=== PATIENT | female | born 1955 | race African-American/Black ===

== ENCOUNTER 2019-07-05 00:43 | Emergency (ER) | payer OTHER, SELFPAY ==
[2019-07-05] VITALS (7 sets, daily range): BP systolic 114–145; BP diastolic 81–99; PULSE 98–123; RESP 17–18; TEMP 37.6–38.6; O2SAT 97–100
--- NOTE | 2019-07-05 00:53 | ED.NAVMDI ---
HPI - Nausea/Vomiting/Diarrhea General Chief complaint: Nausea/Vomiting/Diarrhea Stated complaint: nauseated Time Seen by Provider: 07/05/19 00:50 Source: patient Mode of arrival: ambulatory Limitations: no limitations History of Present Illness HPI Narrative: A 63 y/o female pt has presented to the ED with c/o constant nausea that began 1 day ago. Pt currently has a fever at the ED. Pt notes a decreased appetite. Pt denies ABD pain, flatulence, diarrhea, vomiting, aches,sweating, chills, rhinorrhea, sore throat, productive cough, dysuria, hematuria, SOB, CP, or chest pressure. Pt denies any relieving factors or taking any medicine. Pt states that she took a hot bath before coming to the ED, but did not help. She denies any sick contacts. Pt reports a h/o HTN and allergies. Pt denies any h/o surgeries. 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 Pt denies a h/o smoking, drinking, or drugs. She notes that there is no way she could have been exposed to COVID-19. elicited complaint: nausea (constant) Onset (ago): day(s) (1) Associated abdominal pain: No Location of pain: none Relieving factors: none Associated symptoms: other (fever, decreased appetite) Related Data Allergies Allergy/AdvReac Type Severity Reaction Status Date / Time No Known Allergies Allergy Verified 07/05/19 00:57 Review of Systems Review of Systems: All systems reviewed & are unremarkable except as noted in HPI and below Constitutional: Constitutional: Denies body ache(s), Denies chills, Reports fever(s) and Reports poor appetite ENT: Denies sore throat and Denies other (Rhinorrhea) Cardiovascular: Cardiovascular: Denies chest pain and Denies other (Chest Pressure) Respiratory: Respiratory: Denies cough and Denies dyspnea Gastrointestinal: Gastrointestinal: Denies abdominal pain, Denies excessive flatus, Denies diarrhea, Reports nausea (Constant) and Denies vomiting Genitourinary: Genitourinary: Denies hematuria and Denies dysuria Endocrine: Endocrine: Denies excessive sweating PMFSH Past Medical History Medical History (Updated 07/05/19 @ 02:34 by Jose Eduardo Seo MD) HTN (hypertension) Post-menopausal Seasonal allergies UTI (urinary tract infection) Surgical History Surgical History No pertinent past surgical history Social History Social History (Updated 07/05/19 @ 01:27 by Walter Ramos) Smoking status: Never smoker Alcohol intake: never Substance use: never Occupation/Education: occupation 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 HEAD: Normocephalic, atraumatic. ENT: Mucous membranes moist. CHEST: Clear to auscultation. No respiratory distress. HEART: Tachycardic and regular. Normal peripheral pulses. ABDOMEN: Soft, nontender, nondistended. EXTREMITIES: Normal range of motion. No edema. SKIN: Warm, dry, no rash. NEURO: Alert and oriented x3. Course Course Emergency Course: Tolerating oral fluids without issue. Urinalysis with 4+ bacteria. Will treat with Macrobid. Otherwise nonspecific febrile illness. Recommend patient stay at home until she is 7 days symptom-free. No hypoxia/dyspnea/cold symptoms. Vital Signs Vital signs: Vital Signs Temperature 101.4 F H 07/05/19 00:47 Pulse Rate 119 H 07/05/19 00:47 Respiratory Rate 18 07/05/19 00:47 Blood Pressure 143/88 H 07/05/19 00:47 Pulse Oximetry 100 07/05/19 00:47 Temperature 100.7 F H 07/05/19 02:00 Pulse Rate 102 H 07/05/19 02:23 Respiratory Rate 17 07/05/19 02:23 Blood Pressure 122/84 07/05/19 02:23 Pulse Oximetry 98 07/05/19 02:23 MDM - Nausea/Vomiting/Diarrhea Lab Data Result diagrams: 07/05/19 01:18 07/05/19 01:18 Labs: Lab Results 04
[2019-07-05] MEDS: ONDANSETRON INJ 4 MG/2 ML VIAL IV PUSH (01:20)
[2019-07-05] MEDS: SODIUM CHLORIDE 0.9% IV 1,000 ML 999 ML IV CONT (01:20)
[2019-07-05 01:24] LABS: Basophils Percent Auto 0.2 % (0.2-1.2); Hematocrit 36.4 % (37.0-47.0); Hemoglobin 12.3 g/dL (12.0-15.0); Immature Granulocyte Absolute 0.02 K/mm3 (0.00-0.031); Immature Granulocyte Percent A 0.4 % (0-0.5); Lymphocytes Absolute Auto 0.89 K/mm3 (0.9-3.2); Lymphocytes Percent Auto 19.4 % (18.3-44.2); Mean Corpuscular HGB Conc 33.8 g/dl (32-36); Mean Corpuscular Hemoglobin 30.4 pg (26-34); Mean Corpuscular Volume 90.1 fl (80-100); Mean Platelet Volume 11.5 fl (7.4-10.4); Monocytes Absolute Auto 0.5 K/mm3 (0.1-0.6); Monocytes Percent Auto 9.8 % (2.6-8.5); Neutrophils Absolute Auto 3.2 K/mm3 (1.3-6.7); Neutrophils Percent Auto 70.2 % (45.5-73.1); Platelet Count Result 158 k/mm3 (150-375); Red Blood Count 4.04 M/mm3 (4.2-5.4); Red Cell Distribution Width 12.7 % (11.5-14.5); White Blood Count 4.6 K/mm3 (4.5-10.0)
[2019-07-05 01:36] LABS: Alanine Aminotransferase 17 U/L (4-35); Albumin Level 4.6 g/dL (3.5-5.1); Alkaline Phosphatase 84 U/L (38-126); Aspartate Amino Transferase 31 U/L (14-36); Bilirubin,Total 0.6 mg/dL (0.2-1.3); Blood Urea Nitrogen 18 mg/dL (7-17); Calcium 9.3 mg/dL (8.4-10.2); Carbon Dioxide 26 mmol/L (22-30); Chloride 102 mmol/L (98-107); Estimated CRCL calculation 55 ml/min; Estimated Glomerular Filt Rate > 60; Glucose 109 mg/dL (65-105); Lipase 195 U/L (23-300); Potassium 3.5 mmol/L (3.4-5.0); Sodium 134 mmol/L (137-145)
[2019-07-05 01:53] LABS: Add Urine Microscopic? YES; Appearance Urine Clear (Clear); Bacteria Urine 4+ /hpf; Bilirubin Urine Negative (Negative); Blood Urine Negative (Negative); Color Urine Yellow (Yellow); Glucose Urine UA Negative (Negative); Ketones Urine 1+ mg/dL (Negative); Leukocyte Esterase Ur Negative LEU/UL (Negative); Mucus Urine Rare /lpf; Nitrate Urine Negative (Negative); Protein Urine 2+ mg/dL (Negative); RBC Urine 0-2 /hpf (0-2); Specific Grav Ur 1.021 (1.001-1.035); Squamous Epithelial Cell Urine Occasional /hpf (Few); Urobilinogen Urine Negative mg/dL (<2.0); WBC Urine 0-3 /hpf
--- NOTE | 2019-07-05 02:28 | PC.NURSE ---
pt reports no nausea/vomiting after po challenge. md notified.
== END 2019-07-05 03:09 | disposition home or self-care (01) ==
PROVIDERS: Emergency Provider Emergency Medicine
DX: N39.0 Urinary tract infection, site not specified (principal); R11.0 Nausea; I10 Essential (primary) hypertension
CPT/HCPCS: 36415; 80053; 81001; 83690; 85025; 87804; 96361; 96365; 96375; 99284; J0131; J2405; J7030

== ENCOUNTER 2019-07-10 20:46 | Inpatient (IN) | payer OTHER, SELFPAY ==
--- NOTE | ~2019-07-10 | XR_ITS ---
EXAMINATION: XR chest 1V portable DATE: 07/13/2019 10:59 INDICATION: COVID-19 pneumonia. TECHNIQUE: A single frontal view of the chest was obtained. COMPARISON: Chest single view 07/10/2019 FINDINGS: There are mild airspace opacities in the mid and lower lung zones. No pleural effusion or p neumothorax. The heart size is normal. IMPRESSION: 1. Stable mild airspace opacities in the mid and lower lung zones, consistent with pneumonia. Reviewed, dictated and finalized at location A. IMPRESSION: 1. Stable mild airspace opacities in the mid and lower lung zones, consistent w ith pneumonia.
--- NOTE | ~2019-07-10 | CT_ITS ---
EXAMINATION: CT abdomen pelvis w con DATE: 07/10/2019 21:39 INDICATION: Generalized abdominal pain. Nausea. TECHNIQUE: Computed tomography (CT) of the abdomen and pelvis was performed with 100 mL Omnipaque 350 intravenous contrast. Automated exposure control and iterative reconstruction technique were employe d. The dose-length product was 166.80 mGy-cm. COMPARISON: None. FINDINGS: The visualized portions of the lung bases demonstrate patchy groundglass opacities. No pleu ral effusion. The heart size is normal. No pericardial effusion. The liver, gallbladder, spleen, panc reas, adrenal glands, and kidneys are normal. The endometrial complex is thickened at 2.3 cm. There a re no dilated loops of bowel. The appendix is normal. There are no pathologically enlarged lymph node s. There is no free intraperitoneal fluid. There is a benign bone island in L3 vertebral body. IMPRESSION: 1. Groundglass opacities in the lungs bilaterally suspicious for atypical pneumonia. 2. Thickened endometrial complex suspicious for malignancy. Biopsy is recommended. Reviewed, dictated and finalized at location A. IMPRESSION: 1. Groundglass opacities in the lungs bilaterally suspicious for atypical pneum onia. 2. Thickened endometrial complex suspicious for malignancy. Biopsy is recommend ed.
--- NOTE | ~2019-07-10 | XR_ITS ---
EXAMINATION: XR chest 1V DATE: 07/10/2019 22:22 INDICATION: Fever and cough. TECHNIQUE: A single frontal view of the chest was obtained. COMPARISON: CT abdomen and pelvis 07/10/2019 FINDINGS: There is mild scarring at the lung apices. There are mild airspace opacities in the lower l meena zones. No pleural effusion or pneumothorax. The heart size is normal. IMPRESSION: 1. Mild airspace opacities in the lower lung zone suspicious for atypical pneumonia. Reviewed, dictated and finalized at location A. IMPRESSION: 1. Mild airspace opacities in the lower lung zone suspicious for atypical pneum onia.
[2019-07-10 20:53] VITALS: BP 131/86; PULSE 128; RESP 20; TEMP 37.3; O2SAT 97
--- NOTE | 2019-07-10 20:54 | ED.ABDPAIN ---
HPI - Abdominal Pain General Chief Complaint: Abdominal Pain Stated Complaint: nausea Time Seen by Provider: 07/10/19 20:53 Source: patient Mode of arrival: ambulatory Limitations: no limitations History of Present Illness HPI narrative: 63 years old -[place] female presents with fever and nausea started 1 hour prior to arrival to the emergency room. Patient reports slight suprapubic discomfort. Patient reported having urinary tract infection few days ago. Currently on antibiotic. Patient did not take any antipyretic medication prior to arrival. Patient reported that her temperature was 101 at home. Patient denies any respiratory symptoms diarrhea or urinary symptoms. 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 EYES: Denies visual changes, redness, or discharge. ENT: Denies rhinorrhea, congestion, sore throat, or otalgia. CARDIOVASCULAR: Denies chest pain, palpitations, or edema. RESPIRATORY: Denies cough or dyspnea. GASTROINTESTINAL: Abdominal pain with nausea GENITOURINARY: Denies dysuria or hematuria. SKIN: Denies rash or itching. MUSCULOSKELETAL: Denies back pain, joint pain, or myalgia. NEUROLOGIC: Denies headache, numbness, or weakness. PSYCHIATRIC: Denies anxiety or depression. 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 Musculoskeletal: Normal range of motion, nontender back Neurologic: Alert and oriented ?3, [employer] is normal as tested, no gross motor deficit Course Course Emergency Course: Improving Reevaluation(s) Reevaluation #1: Patient feeling much better compared on arrival, Patient will be admitted for possible COVID 19, urinary tract infection without improvement on oral antibiotics, dehydration Date: 07/10/19 Time: 22:57 Consultations Consultation #1: MIGUEL Date: 07/10/19 Time: 22:59 Vital Signs Vital signs: Vital Signs Temperature 37.3 C 07/10/19 20:53 Pulse Rate 128 H 07/10/19 20:53 Respiratory Rate 20 07/10/19 20:53 Blood Pressure 131/86 07/10/19 20:53 Pulse Oximetry 97 07/10/19 20:53 Temperature 37.2 C 07/10/19 22:3
[2019-07-10 21:15] LABS: Basophils Percent Auto 0.1 % (0.2-1.2); Hematocrit 38.7 % (37.0-47.0); Immature Granulocyte Absolute 0.03 K/mm3 (0.00-0.031); Immature Granulocyte Percent A 0.4 % (0-0.5); Lymphocytes Absolute Auto 1.27 K/mm3 (0.9-3.2); Lymphocytes Percent Auto 17.3 % (18.3-44.2); Mean Corpuscular HGB Conc 33.6 g/dl (32-36); Mean Corpuscular Hemoglobin 30.4 pg (26-34); Mean Corpuscular Volume 90.4 fl (80-100); Mean Platelet Volume 11.7 fl (7.4-10.4); Monocytes Absolute Auto 0.4 K/mm3 (0.1-0.6); Monocytes Percent Auto 5.3 % (2.6-8.5); Neutrophils Absolute Auto 5.7 K/mm3 (1.3-6.7); Neutrophils Percent Auto 76.9 % (45.5-73.1); Platelet Count Result 156 k/mm3 (150-375); Red Blood Count 4.28 M/mm3 (4.2-5.4); Red Cell Distribution Width 12.8 % (11.5-14.5); White Blood Count 7.4 K/mm3 (4.5-10.0)
[2019-07-10 21:22] LABS: Alanine Aminotransferase 43 U/L (4-35); Albumin Level 4.5 g/dL (3.5-5.1); Alkaline Phosphatase 75 U/L (38-126); Aspartate Amino Transferase 63 U/L (14-36); Blood Urea Nitrogen 33 mg/dL (7-17); Calcium 9.6 mg/dL (8.4-10.2); Carbon Dioxide 26 mmol/L (22-30); Chloride 100 mmol/L (98-107); Estimated CRCL calculation 36 ml/min; Estimated Glomerular Filt Rate > 60; Glucose 113 mg/dL (65-105); Lipase 770 U/L (23-300); Potassium 3.9 mmol/L (3.4-5.0); Sodium 136 mmol/L (137-145)
[2019-07-10 21:27] LABS: Add Urine Microscopic? YES; Amorphous Sediment Urine Few; Appearance Urine Cloudy (Clear); Bacteria Urine Trace /hpf; Bilirubin Urine Negative (Negative); Blood Urine Negative (Negative); Color Urine Yellow (Yellow); Glucose Urine UA Negative (Negative); Ketones Urine Trace mg/dL (Negative); Leukocyte Esterase Ur 3+ LEU/UL (Negative); Mucus Urine Few /lpf; Nitrate Urine Negative (Negative); Protein Urine 2+ mg/dL (Negative); RBC Urine 0-2 /hpf (0-2); Specific Grav Ur 1.023 (1.001-1.035); Squamous Epithelial Cell Urine Many /hpf (Few); WBC Urine 21-30 /hpf
[2019-07-10] MEDS: SODIUM CHLORIDE 0.9% IV 1,000 ML 999 ML IV CONT (21:35)
[2019-07-10 22:31] VITALS: BP 132/88; PULSE 120; RESP 20; TEMP 37.2; O2SAT 97
[2019-07-10 22:54] LABS: CRP 8.4 mg/dL (<1.0); Lactate Dehydrogenase 798 U/L (313-618)
[2019-07-10 22:58] LABS: Fibrinogen 378 mg/dl (215-510)
[2019-07-10 23:32] VITALS: BP 133/70; PULSE 100; RESP 20; TEMP 37.1; O2SAT 98
[2019-07-10 23:40] VITALS: BP 137/70; PULSE 88; RESP 20; TEMP 39.3; O2SAT 93; BMI 21.4
[2019-07-10 23:42] LABS: Erythrocyte Sedimentation Rate 73 mm/hr (0-20)
[2019-07-11] VITALS (11 sets, daily range): BP systolic 100–114; BP diastolic 66–72; PULSE 94–112; RESP 16–18; TEMP 36.6–39.2; O2SAT 97–100
--- NOTE | 2019-07-11 00:10 | PC.NURSE ---
Addendum entered by Rakel Rand RN 07/12/19 09:56: Admission completed by Tamara Espinosa RN. Original Note: This patient, Chely Daniels, was admitted to [facility] Surg Room 328-01 on 07/10 at 0010. Patient/family oriented to hospital policies and general routines including ID bracelet, bed and alarms, visiting hours, pain management, procedures, bathroom and other care routines, personal items, smoking policy, room service/diet, and visiting hours. Valuables list has been completed. Information on how to activate the Rapid Response Team has been discussed. Patient/Family are encouraged to report perceived risks to care and to ask questions if they do not understand what they are told or what they should do.
--- NOTE | 2019-07-11 00:32 | PM.IMHP ---
H&P: HPI History of Present Illness Chief complaint: UTI, Dehydration, Uterine Mass, Covid-19 [place]. 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 The patient was just seen in our ER last Thursday when she was diagnosed with a UTI and sent home with macrobid. She denies any urinary symptoms tonight and is currently only complaining of a diffuse headache. She denies any vomiting, abdominal pain, dysuria, hematuria, chest pain, shortness of breath, palpitations, diarrhea or LE swelling. She does report having a sporadic nonproductive cough over the past few days. She was evaluated in the ER tonight and found to have an abnormal urinalysis. Apparently she did not have a urine culture obtained last thursday. The pateint's WBC is normal. We have been asked to admit the patient to the hospital for IV antibiotic therapy for a presumed worsened UTI? ER provider has tested the patient for possible novel Covid-19 viral infection given that her CXR demonstrated groundglass opacities in the bases. She has no other complaints at this time. 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[place], 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 Gender identity (if verbalized by the patient): Female Spiritual care concerns: No Agree to blood products: Yes Comments Patient denies any previous surgeries Meds Home Medications and Allergies Home Medications Medication Instructions Recorded Confirmed Type nitrofurantoin monohyd/m-cryst 100 mg PO Q12H 5 Days #10 cap 07/05/19 Rx [Macrobid] promethazine 25 mg PO Q6H PRN #14 tablet 07/05/19 Rx Allergies Allergy/AdvReac Type Severity Reaction Status Date / Time No Known Allergies Allergy Verified 07/10/19 20:56 Vital Signs Vital Signs - 24 hr 07/10/19 20:53 07/10/19 22:31 07/10/19 23:32 Temperature 37.3 C 37.2 C 37.1 C Pulse Rate 128 H 120 H 100 Respiratory Rate 20 20 20 Blood Pressure 131/86 132/88 133/70 Pulse Oximetry 97 97 98 07/10/19 23:40 Temperature 39.3 C H Pulse Rate 88 Respiratory Rate 20 Blood Pressure 137/70 Pulse Oximetry 93 Exam Const: General: cooperative, no acute distress, alert, awake, ill appearing and other (febrile to touch++ ) Nutritional Appearance: well nourished Orientation/consciousness: patient oriented x3 HENMT: Head: normal to inspection General nose exam: Normal external nose present Face and sinus: normal facial exam Mouth: Yes Normal oral and palatal mucosa present and Yes oropharynx normal Eyes: Pupils: Equal, round and reactive pupils present EOM: EOMs intact bilaterally Neck: Neck: supple and no JVD Thyroid: thyroid normal Lymphatic: lymphadenopathy not noted Resp: Effort & Inspection: normal respiratory effort Auscultation: clear to auscultation bilaterally Cardio: Rate: regular rate Rhythm: regular rhythm Heart sounds: no murmurs GI: Inspection: normal to inspection Auscultation: normal bowel sounds Skin: General skin exam: normal color and no rashes or lesions noted Neuro: General: patient oriented x3 Cranial nerves: Yes CN's II-XI
[2019-07-11] MEDS: ACETAMINOPHEN 325 MG TABLET 650 MG PO ×3 (01:03→21:37)
[2019-07-11] MEDS: SODIUM CHLORIDE 0.9% IV 1,000 ML 125 ML IV CONT (02:36)
[2019-07-11 06:13] LABS: Basophils Percent Auto 0.2 % (0.2-1.2); Hematocrit 35.3 % (37.0-47.0); Hemoglobin 11.8 g/dL (12.0-15.0); Immature Granulocyte Absolute 0.04 K/mm3 (0.00-0.031); Immature Granulocyte Percent A 0.7 % (0-0.5); Lymphocytes Absolute Auto 1.03 K/mm3 (0.9-3.2); Lymphocytes Percent Auto 17.7 % (18.3-44.2); Mean Corpuscular HGB Conc 33.4 g/dl (32-36); Mean Corpuscular Hemoglobin 30.3 pg (26-34); Mean Corpuscular Volume 90.7 fl (80-100); Mean Platelet Volume 11.8 fl (7.4-10.4); Monocytes Absolute Auto 0.3 K/mm3 (0.1-0.6); Monocytes Percent Auto 4.8 % (2.6-8.5); Neutrophils Absolute Auto 4.5 K/mm3 (1.3-6.7); Neutrophils Percent Auto 76.6 % (45.5-73.1); Platelet Count Result 143 k/mm3 (150-375); Red Blood Count 3.89 M/mm3 (4.2-5.4); Red Cell Distribution Width 12.9 % (11.5-14.5); White Blood Count 5.8 K/mm3 (4.5-10.0)
[2019-07-11 06:19] LABS: Blood Urea Nitrogen 18 mg/dL (7-17); Calcium 9.3 mg/dL (8.4-10.2); Carbon Dioxide 27 mmol/L (22-30); Chloride 104 mmol/L (98-107); Estimated CRCL calculation 49 ml/min; Estimated Glomerular Filt Rate > 60; Glucose 104 mg/dL (65-105); Potassium 3.6 mmol/L (3.4-5.0); Sodium 136 mmol/L (137-145)
[2019-07-11] MEDS: DOXYCYCLINE HYCLATE 100 MG TABLET PO ×2 (09:16→21:37)
--- NOTE | 2019-07-11 14:35 | PM.IMPN ---
Progress Note: A&P Assessment and Plan (1) Abnormal urinalysis: Code(s): R82.90 - Unspecified abnormal findings in urine Status: Acute Assessment and Plan: The pt reports urinary frequency. UA suggests UTI. Continue IV ceftriaxone empirically Urine culture is pending (2) Suspected COVID-19 virus infection: Code(s): R68.89 - Other general symptoms and signs Status: Acute Assessment and Plan: CXR revealed mild airspace opacities in the lower lung zone suspicious for atypical pneumonia. CT abd/pelvis revealed groundglass opacities bilaterally suspicious for atypical PNA. She continues to have fever elevated to 102.7 overnight. She denies dyspnea, cough, pleuritic pain, chest pain. Ferritin was elevated at 421, AST 63, ALT 43, LDH 798, CRP 8.4. She is being tested for COVID-19. Initiate droplet isolation Continue bronchodilators via MDI Oxygen PRN Await COVID-19 testing Continue empiric abx IV ceftriaxone and will begin doxycycline for empiric PNA treatment [place] acute phase reactants (3) Thickened endometrium: Code(s): R93.89 - Abnormal findings on diagnostic imaging of other specified body structures Status: Acute Assessment and Plan: CT abd/pelvis revealed thickened endometrial complex of 2.3cm suspicious for malignancy. She denies abnormal uterine bleeding. Pt will need endometrial biopsy outpatient. I have referred her to TRANSFUS[facility] NURSE Dr. Bernard for further workup/biopsy. An appointment was scheduled for 08/04/19 at 10:15 AM. (4) DVT prophylaxis: Code(s): Z29.9 - Encounter for prophylactic measures, unspecified Status: Acute Assessment and Plan: Continue SCDs Subjective Date/time seen: 07/11/19 14:35 Interval history: Mrs. Daniels is a 63 y.o. female who is seen in follow-up for UTI and possible COVID-19 infection. She reports that her nausea has resolved. She denies vomiting and abdominal pain. She endorses urinary frequency but this is improving. She denies chest pain, dyspnea, and cough. She denies chills. She states that her appetite is better today and she ate her lunch without difficulty. She denies headaches, dizziness, and lightheadedness. She denies any hx of uterine bleeding. Review of Systems Review of Systems: All systems reviewed & are unremarkable except as noted in HPI and below Exam Narrative: Exam Narrative: General: Well-developed and well-nourished 63 y.o. female lying in bed in the semi-harris's position in bed in no acute distress. HEENT: Normocephalic and atraumatic. Conjunctivae and lids normal. PERRL. EOMI. Mucous membranes moist. Posterior pharynx WNL. Neck: Supple. No lymphadenopathy or masses. Cardiac: Regular rate and rhythm. S1 and S2 normal. Lungs: Normal respiratory effort. No accessory muscle use. Lungs are clear to auscultation. Abdomen: Appearance grossly normal. Bowel sounds present in all four quadrants. Abdomen is soft, non-distended, and non-tender. No CVA tenderness. Musculoskeletal: No joint erythema, swelling, or tenderness. ROM within normal limits. Extremities: No lower extremity edema. Palpable DP and PT bilaterally. Neurological: Alert and oriented x3. No focal neurological deficits noted. Speech is clear. Skin: Warm and dry. No lesions or eruptions. Psychiatric: Judgment and insight intact. Mood and affect normal. Objective Data Vital Signs Vital Signs: Vital Signs - 24 hr 07/10/19 20:53 07/10/19 22:31 07/10/19 23:32 Temperature 99.1 F 99.0 F 98.8 F Pulse Rate 128 H 120 H 100 Respiratory Rate 20 20 20 Blood Pressure 131/86 132/88 133/70 Pulse Oximetry 97 97 98 07/10/19 23:40 07/11/19 01:03 07/11/19 04:00 Temperature 102.7 F H 102.5 F H 98.4 F Pulse Rate 88 98 Respiratory Rate 20 18 Blood Pressure 137/70 105/66 Pulse Oximetry 93 97 07/11/19 10:00 07/11/19 10:40 07/11/19 11:40 Temperature 100.8 F H 100.1 F H 98 F Pulse Rate 98
[2019-07-12 02:00] VITALS: BP 98/66; PULSE 100; RESP 18; TEMP 37.3; O2SAT 97
[2019-07-12 05:39] LABS: Basophils Percent Auto 0.2 % (0.2-1.2); Hematocrit 33.9 % (37.0-47.0); Hemoglobin 11.6 g/dL (12.0-15.0); Immature Granulocyte Absolute 0.02 K/mm3 (0.00-0.031); Immature Granulocyte Percent A 0.4 % (0-0.5); Lymphocytes Absolute Auto 0.88 K/mm3 (0.9-3.2); Lymphocytes Percent Auto 17.2 % (18.3-44.2); Mean Corpuscular HGB Conc 34.2 g/dl (32-36); Mean Corpuscular Hemoglobin 30.3 pg (26-34); Mean Corpuscular Volume 88.5 fl (80-100); Mean Platelet Volume 11.3 fl (7.4-10.4); Monocytes Absolute Auto 0.2 K/mm3 (0.1-0.6); Monocytes Percent Auto 4.5 % (2.6-8.5); Neutrophils Percent Auto 77.7 % (45.5-73.1); Platelet Count Result 163 k/mm3 (150-375); Red Blood Count 3.83 M/mm3 (4.2-5.4); Red Cell Distribution Width 12.7 % (11.5-14.5); White Blood Count 5.1 K/mm3 (4.5-10.0)
[2019-07-12 06:00] VITALS: BP 104/70; PULSE 93; RESP 16; TEMP 37.5; O2SAT 99
[2019-07-12 06:05] LABS: Potassium 3.4 mmol/L (3.4-5.0)
[2019-07-12 06:13] LABS: Alanine Aminotransferase 42 U/L (4-35); Albumin Level 3.7 g/dL (3.5-5.1); Alkaline Phosphatase 59 U/L (38-126); Aspartate Amino Transferase 55 U/L (14-36); Bilirubin,Total 0.7 mg/dL (0.2-1.3); Blood Urea Nitrogen 15 mg/dL (7-17); Calcium 8.9 mg/dL (8.4-10.2); Carbon Dioxide 24 mmol/L (22-30); Chloride 104 mmol/L (98-107); Creatine Kinase 147 U/L (30-135); Estimated CRCL calculation 55 ml/min; Estimated Glomerular Filt Rate > 60; Glucose 107 mg/dL (65-105); Lactate Dehydrogenase 675 U/L (313-618); Sodium 136 mmol/L (137-145)
[2019-07-12 06:22] LABS: CRP 15.8 mg/dL (<1.0)
[2019-07-12] MEDS: DOXYCYCLINE HYCLATE 100 MG TABLET PO ×2 (09:25→20:08)
[2019-07-12 10:00] VITALS: BP 95/65; PULSE 64; RESP 18; TEMP 36.7; O2SAT 100
--- NOTE | 2019-07-12 11:18 | PM.IMPN ---
Progress Note: A&P Assessment and Plan (1) Suspected COVID-19 virus infection: Code(s): R68.89 - Other general symptoms and signs Status: Acute Assessment and Plan: CXR revealed mild airspace opacities in the lower lung zone suspicious for atypical pneumonia. CT abd/pelvis revealed groundglass opacities bilaterally suspicious for atypical PNA. She continues to have fever elevated to 102.3 overnight. She denies dyspnea, cough, pleuritic pain, chest pain. Ferritin was elevated at 421, AST 63, ALT 43, LDH 798, CRP 8.4. She is being tested for COVID-19. Continue droplet isolation Continue bronchodilators via MDI Continue oxygen prn with goal saturation >94% Continue IV Ceftriaxone and doxy for empiric pneumonia treatment Continue to trend acute phase reactants Continue tylenol prn fever (2) Abnormal urinalysis: Code(s): R82.90 - Unspecified abnormal findings in urine Status: Acute Assessment and Plan: Patient previously seen in ER on 07/04 and treated with macrobid. She is endorsing urinary frequency but denies dysuria or hematuria. UA suggestive of UTI. Urine culture reveals 3 or more organisms each >10,000 CFU which may represent contamination from external genitalia. Continue IV Ceftriaxone empirically Repeat UA with reflex culture due to symptoms (3) Thickened endometrium: Code(s): R93.89 - Abnormal findings on diagnostic imaging of other specified body structures Status: Acute Assessment and Plan: CT abd/pelvis revealed thickened endometrial complex of 2.3cm suspicious for malignancy. She denies abnormal uterine bleeding. Pt will need endometrial biopsy outpatient. I have referred her to [facility] Dr. Bernard for further workup/biopsy. An appointment was scheduled for 08/04/19 at 10:15 AM. Subjective Date/time seen: 07/12/19 11:18 Interval history: Date/time of service: 07/12/19 at 0845 I am assuming care for Ms. Daniels today. She describes an episode last night where she became feverish and began sweating profusely. She felt nauseated at that time but did not vomit. She denied dizziness or lightheadedness. She was given ice packs and tylenol which she reported improved her symptoms. She also noted decreased appetite. Presently, she denies fevers or chills but continues to endorse nausea. She denies abdominal pain, chest pain, or shortness of breath. She denies myalgia or arthralgia. She endorses occasional dry cough. She endorses urinary frequency but denies dysuria or hematuria. She reported difficulty sleeping due to feeling hot. Review of Systems Review of Systems: Narrative: A 12 point review of systems was reviewed with pertinent positives and negatives as per HPI. Exam Narrative: Exam Narrative: Ms. Daniels is examined alone today. She is a well devoloped thin female who is lying supine in bed. She appears comfortable and is in NARD with VSS. HR 93, RR 16, BP 104/70, T 99.5F. Neuro: awake, alert and oriented x3, speech clear, no focal neuro deficits noted HEENMT: normocephalic, atraumatic, EOMI, sclerae anicteric, moist oral mucosa, normal oropharynx Neck: supple, no lymphadenopathy Respiratory: clear to auscultation bilaterally, normal respiratory effort, 98% on room air Cardio: regular rate, regular rhythm, normal S1 and S2 Abdomen: normal to inspection, normoactive bowel sounds, soft, nontender, no masses noted Extremities: BLE without edema, erythema, or pain to palpation, dorsal pedis pulses present bilaterally Skin: no rashes or lesions, warm and damp Psych: normal mood and affect Objective Data Vital Signs Vital Signs: Vital Signs - 24 hr 07/11/19 11:40 07/11/19 12:34 07/11/19 14:00 Temperature 98 F 98.5 F 98.1 F Pulse Rate 98 Respiratory Rate 16 Blood Pressure 112/72 Pulse Oximetry 99 07/11/19 18:00 07/11/19 21:37 07/11/19 22:00 Temperature 99.3 F 102.3 F H 102.3 F H Pulse Rate 94 112 H Respiratory Rate 16 18 B
[2019-07-12 14:00] VITALS: BP 125/72; PULSE 106; RESP 14; TEMP 36.6; O2SAT 100
[2019-07-12 15:27] LABS: SARS-CoV-2 RNA PCR Positive
[2019-07-12 18:00] VITALS: BP 116/75; PULSE 107; RESP 18; TEMP 36.8; O2SAT 100
[2019-07-12] MEDS: ATORVASTATIN 10 MG TABLET PO (20:08)
[2019-07-12 22:00] VITALS: BP 121/72; PULSE 106; RESP 20; TEMP 36.5; O2SAT 100
[2019-07-13 02:00] VITALS: BP 113/75; PULSE 93; RESP 20; TEMP 36.8; O2SAT 98
[2019-07-13 05:27] LABS: Add Urine Microscopic? YES; Appearance Urine Clear (Clear); Bilirubin Urine Negative (Negative); Blood Urine Negative (Negative); Color Urine Yellow (Yellow); Glucose Urine UA Negative (Negative); Ketones Urine Negative (Negative); Leukocyte Esterase Ur Trace LEU/UL (Negative); Nitrate Urine Negative (Negative); Protein Urine 1+ mg/dL (Negative); RBC Urine 0-2 /hpf (0-2); Squamous Epithelial Cell Urine Occasional /hpf (Few); Urobilinogen Urine Negative mg/dL (<2.0); WBC Urine 0-3 /hpf
[2019-07-13 05:36] LABS: Hematocrit 35.3 % (37.0-47.0); Mean Corpuscular Hemoglobin 30.2 pg (26-34); Mean Corpuscular Volume 88.9 fl (80-100); Mean Platelet Volume 11.4 fl (7.4-10.4); Platelet Count Result 198 k/mm3 (150-375); Red Blood Count 3.97 M/mm3 (4.2-5.4); Red Cell Distribution Width 12.8 % (11.5-14.5); White Blood Count 4.1 K/mm3 (4.5-10.0)
[2019-07-13 06:00] VITALS: BP 99/64; PULSE 94; RESP 20; TEMP 36.5; O2SAT 97
[2019-07-13 08:03] LABS: Alanine Aminotransferase 42 U/L (4-35); Albumin Level 3.9 g/dL (3.5-5.1); Alkaline Phosphatase 61 U/L (38-126); Aspartate Amino Transferase 50 U/L (14-36); Bilirubin,Total 0.6 mg/dL (0.2-1.3); Blood Urea Nitrogen 12 mg/dL (7-17); CRP 7.4 mg/dL (<1.0); Calcium 9.6 mg/dL (8.4-10.2); Carbon Dioxide 25 mmol/L (22-30); Chloride 104 mmol/L (98-107); Creatine Kinase 116 U/L (30-135); Estimated CRCL calculation 55 ml/min; Estimated Glomerular Filt Rate > 60; Glucose 101 mg/dL (65-105); Lactate Dehydrogenase 760 U/L (313-618); Sodium 137 mmol/L (137-145)
[2019-07-13] MEDS: DOXYCYCLINE HYCLATE 100 MG TABLET PO (08:05)
[2019-07-13 10:00] VITALS: BP 97/60; PULSE 99; RESP 18; TEMP 36.6; O2SAT 99
--- NOTE | 2019-07-13 10:08 | ECG_ITS ---
Measurements Intervals [place] Rate: 98 P: 57 WI: 159 QRS: 42 QRSD: 80 T: 60 QT: 338 QTc: 433 Interpretive Statements SINUS RHYTHM BASELINE ARTIFACT- I, II, III, AVR, AVL, AVF NORMAL ECG Electronically Signed On 07-13-2019 13:27:59 CDT by Delfino Hendricks D.O.
[2019-07-13 14:00] VITALS: BP 135/84; PULSE 105; RESP 18; TEMP 36.4; O2SAT 98
--- NOTE | 2019-07-13 19:39 | PM.DS ---
DS: Diagnosis Admitting Diagnosis Admitting Diagnosis: Unspecified abnormal findings in urine Discharge Diagnosis (1) COVID-19: Code(s): U07.1 - COVID-19 Status: Acute (2) Abnormal urinalysis: Code(s): R82.90 - Unspecified abnormal findings in urine Status: Acute (3) Thickened endometrium: Code(s): R93.89 - Abnormal findings on diagnostic imaging of other specified body structures Status: Acute DS: Summary Hospital Course Reason for hospitalization: Fever, Nausea Hospital Course: Date of admission: 07/10/19 Date of discharge: 07/13/19 Chely Daniels is a 63 yo female with PMH significant for HTN and recent UTI treated on 07/05/19, who presented to the ED on 07/10/19 with complaints of nausea and fevers. At presentation, temp 99.1F, HR 128, 97% on room air, WBC 7.4, AST 63, ALT 43, LDH 798, Ferritin 421, CRP 8.4, UA 3+ leukocyte esterase, 21-30 WBC, and many squamous epithelial cells. CT abd/pelvis revealed bilateral ground glass opacities suspicious for atypical pneumonia. She was admitted to the hospitalist service on 07/10/19. She tested positive for COVID-19 and we were notified of positive result on 07/11. She maintained adequate oxygenation on room air at 93% and above and never required supplemental O2. CXR was monitored and remained stable. She initially had fevers with Tmax 102.7 which responded well to Tylenol and she remained fever free for >36 hours prior to discharge. She was initially treated with empiric Ceftriaxone and Doxycycline for pneumonia but this was not continued given viral nature. Acute phase reactants were monitored. As she remained stable without cough, shortness of breath, intractable fever, or hypoxia, it was felt she could continue symptomatic care at home. She was anxious to leave the hospital. I spoke with her PCP who will call to schedule a telemedicine appointment with her in the next 2-4 days to monitor her symptoms. She was educated about self-isolation, quarantine, and social distance and provided handouts regarding symptoms to watch for and how to care for herself and keep others safe. 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 She was instructed to monitor her temperature and will call her doctor and take tylenol if she has fever. With the patients permission, I spoke with her regarding her condition and encouraged him to self-quarantine, which he had already been practicing. No one else lives in the home. Additionally, given her UA and recent UTI, urine culture was performed which grew 3 or more organisms likely representing contamination. She endorsed frequency. A repeat UA was performed and did not reveal evidence of UTI and reflex culture was not performed. Her urinary symptoms subsided. On CT abd/pelvis, she was incidentally noted to have thickened endometrial complex suspicious for malignancy. She is scheduled for endometrial biopsy with CONSTRUCTION EQUIPMENT OVERHAULER Dr. Bernard on 08/14/19. I alerted Dr. Bernard's office of her positive COVID test, and they will still see her on 08/13. We had a long conversation regarding COVID safety and worrisome symptoms to watch for and communicate to PCP. She was hemodynamically stable and was discharged home with her on 07/13/19 with instructions to follow up with her PCP in 2-4 days. Staff gathered to cheer for her safe discharge home as she left the hospital. Status at Discharge Functional status at discharge: independent ambulation Overall status at discharge: patient is progressing back to baseline Time Spent with Patient Time attestation: Total time spent providing and/or coordinating discharge services:50 minutes Time spent: Greater than 30 minutes Exam Narrative: Exam Narrative: Ms. Daniels is examined alone today. She is a well developed thin female who is lying supine in bed. She appears comfortable and is in NARD with VSS. HR 105, RR 18, BP 135/84, T 97.6F. Neuro: awake, alert and eliana
== END 2019-07-13 14:35 | disposition home or self-care (01) | DRG 177 ==
LOC: ANHED 22:59 → ANH3MEDSUR 22:59
PROVIDERS: Physician Assistant; Admitting Provider Family Medicine; Emergency Provider Emergency Medicine; Visit Provider Family Medicine
DX: U07.1 COVID-19 (principal); J12.89 Other viral pneumonia; E86.0 Dehydration; R82.90 Unspecified abnormal findings in urine; I10 Essential (primary) hypertension; R93.89 Abnormal findings on diagnostic imaging of other specified body structures; N85.9 Noninflammatory disorder of uterus, unspecified
CPT/HCPCS: 36415; 71045; 74177; 80048; 80053; 81001; 82550; 82728; 83615; 83690; 85025; 85027; 85380; 85384; 85652; 86140; 87040; 87086; 87088; 87635; 93005; 96365; 99285; A9270; G0378; J0696; J7030; Q9967; U0003

== ENCOUNTER 2019-09-19 00:21 | Outpatient (CLI) | payer OTHER, SELFPAY ==
[2019-09-19 17:13] LABS: SARS-CoV-2 RNA PCR Negative
== END 2019-09-19 00:22 | disposition home or self-care (01) ==
LOC: ANHCOVIDDT 00:21
PROVIDERS: Visit Provider Obstetrics & Gynecology
DX: Z01.812 Encounter for preprocedural laboratory examination (principal); Z11.59 Encounter for screening for other viral diseases
CPT/HCPCS: 87635; C9803; U0003

== ENCOUNTER 2019-09-21 02:01 | Day surgery (SDC) | payer OTHER, SELFPAY ==
[2019-09-12 10:44] VITALS: BMI 21.9
--- NOTE | 2019-09-21 08:30 | PM.IMHP ---
H&P: HPI History of Present Illness Chief complaint: Post Menopausal Bleeding Narrative: 63 y/o with postmenopausal bleeding and an endometrial complex measuring 2.3cm on CT. There were no pathologically enlarged lymph nodes and no free fluid. EMB in office inadequate. 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 Gender identity (if verbalized by the patient): Female Spiritual care concerns: No Agree to blood products: Yes Meds Home Medications and Allergies Home Medications Medication Instructions Recorded Confirmed Type atorvastatin 40 mg PO HS 07/11/19 09/12/19 History acetaminophen [Mapap 650 mg PO Q4H PRN #30 tablet 07/13/19 09/12/19 Rx (acetaminophen)] lisinopril 25 mg PO DAILY 09/12/19 09/12/19 History Allergies Allergy/AdvReac Type Severity Reaction Status Date / Time No Known Allergies Allergy Verified 09/12/19 10:46 Exam Const: Orientation/consciousness: patient oriented x3 Other: Well-developed, well-nourished female in no acute distress. Neck: Thyroid: thyroid normal Lymphatic: no lymphadenopathy noted (in neck, axilla or inguinal nodes) Resp: Effort & Inspection: normal respiratory effort Auscultation: clear to auscultation bilaterally Cardio: Rate: regular rate Rhythm: regular rhythm Heart sounds: S1 normal heart sound present and S2 normal heart sound present GI: Other: ABD: Soft, nontender, nondistended. No guarding or rebound tenderness. No hepatosplenomegaly. : General: Yes no CVA tenderness Other: External genitalia: normal female hair distribution, without lesion. Urethral meatus: no lesion, non prolapsed. Bladder: no mass, nontender Vagina: atrophic, without lesion or discharge. No cystocele or rectocele. Cervix: no lesion or discharge. Uterus: small, anteverted, freely mobile, nontender Adnexa: no mass or tenderness. Anus/perineum: no lesions, nontender Back/Spine/Pelvis: Back: no CVA tenderness Skin: General skin exam: normal color and no rashes or lesions noted Neuro: General: patient oriented x3 Extrem: Other: Extremities: nontender with no edema Psych: Mental Status: mental status grossly normal Affect: normal affect Assessment and Plan Assessment and plan (1) Thickened endometrium: Code(s): R93.89 - Abnormal findings on diagnostic imaging of other specified body structures Status: Acute Assessment and Plan: I have advised her that we should evaluate the endometrium thoroughly. I offered a hysteroscopy with D&C. She understands risks of surgery to include risks of anesthesia, risks of pain, infection, bleeding, blood products, thromboembolic phenomena and damage to adjacent structures such as bowel, bladder, ureters, blood vessels and nerves. She understands all these risks and elects to proceed with surgery. (2) Postmenopausal bleeding: Code(s): N95.0 - Postmenopausal bleeding Status: Acute
--- NOTE | 2019-09-21 09:16 | P.PNAN_ITS ---
Anes - Initial Pre Proc Eval Procedure: Operation Date: 09/21/19 12:00 Proposed Procedures p Hysteroscopy Dilation and Curettage - Babar Bernard MD Date/Time: 09/21/19 09:16 Surgeon: Babar Bernard MD Pre Op Diagnosis: Post Menopausal Bleeding Patient Data Age: 63 Gender: F Height: 1.55 m Weight: 52.62 kg Allergies Allergy/AdvReac Type Severity Reaction Status Date / Time No Known Allergies Allergy Verified 09/12/19 10:46 Home Medications Medication Instructions Recorded Confirmed Type atorvastatin 40 mg PO HS 07/11/19 09/12/19 History acetaminophen [Mapap 650 mg PO Q4H PRN #30 tablet 07/13/19 09/12/19 Rx (acetaminophen)] lisinopril 25 mg PO DAILY 09/12/19 09/12/19 History Patient hx anesthesia problems: none Family hx anesthesia problems: none [facility] Past Medical History Medical History HTN (hypertension) Post-menopausal Seasonal allergies UTI (urinary tract infection) Surgical History Surgical History No pertinent past surgical history Family History Family History Father Diabetes mellitus Social History Social History Smoking status: Unknown if ever smoked Alcohol intake: unknown Substance use: never Substance use type: does not use 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[employer], 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 Gender identity (if verbalized by the patient): Female Spiritual care concerns: No Agree to blood products: Yes Anes - Eval Final PreProcedure Day of Procedure 09/21/19 09:16 Patient weight: normal Heart: regular rate and rhythm Lungs: clear to auscultation and normal air movement Airway: Mallampati scale class II Neurological: alert and oriented Last oral intake: >/= 8 hours ASA classification: II Emergent: no Anesthetic plan: proceed Anesthesia type and monitoring: general GIVS and LMA Informed Consent: The patient's anesthetic plan and its attendant risks and benefits were discussed with the patient/family/POA. Questions were solicited and answers provided to the satisfaction of the patient/family/POA.
[2019-09-21 10:06] VITALS: BP 136/88; PULSE 99; RESP 18; TEMP 36.3; O2SAT 100
[2019-09-21] MEDS: LACTATED RINGERS 1,000 ML 30 ML IV CONT (10:53)
--- NOTE | 2019-09-21 12:01 | WPDHPUPDATE1 ---
History and Physical Update Update Date/Time: 09/21/19 12:01 History and Physical has been reviewed, including an updated exam of the patient. There are NO changes in the patient's condition. Risks, benefits, and alternatives have been discussed and questions answered. Patient agrees to proceed with procedure.
--- NOTE | 2019-09-21 12:45 | SUR.OPER ---
Ebl=20ml
--- NOTE | 2019-09-21 12:53 | PM.PROC ---
Procedure Note - Detailed Date of procedure: 09/21/19 Pre-op diagnosis: Post Menopausal Bleeding Postmenopausal bleeding Endometrial mass Post-op diagnosis: same Procedure performed: Hysteroscopy D&C Description of procedure: The patient was taken to the operating room where she was prepared and draped in the usual sterile fashion in the dorsal lithotomy position. The bladder was drained with a red rubber catheter. A sterile speculum was placed into the vagina. The anterior lip of the cervix was grasped with single-tooth tenaculum. Ten mL of 1% lidocaine was administered in a paracervical block. The cervix was then gently dilated using Hegar dilators until an 8 mm dilator could be passed. Hysteroscopy was performed using sterile saline as a distention medium. Findings are as noted above. The polyp forceps and the myoma grasper were both used to grasp the endometrial mass, and portions of it were able to be removed and sent to pathology. Sharp curettage was then performed, and endometrial curettings were collected on a Telfa pad and passed off to be sent to pathology. Hemostasis was excellent. Sponge, lap, needle and instrument counts were correct. The patient was awakened and taken to the recovery room in stable condition. I was present and scrubbed through the entire procedure. Implants: None Anesthesia: MAC and local (paracervical block) Surgeon: Babar Bernard MD Estimated blood loss (mL): 20 Drains: No Packing: No Pathology: yes (Endometrial curettings) Complications: None Condition: stable Disposition: PACU Findings: Endometrial mass noted at the fundus, with the appearance of a submucous myoma.
[2019-09-21 12:54] VITALS: BP 109/68; PULSE 90; RESP 16; O2SAT 98
[2019-09-21 13:50] VITALS: BP 128/87; PULSE 94; RESP 16
--- NOTE | 2019-09-21 15:40 | SUR.PHASEII ---
PT'S UPDATED UPON HER ARRIVAL TO OP AREA.
== END 2019-09-21 14:02 | disposition home or self-care (01) ==
PROVIDERS: Visit Provider Obstetrics & Gynecology
PROC: 0U5B8ZZ Destruction of Endometrium, Via Natural or Artificial Opening Endoscopic (ICD-10-PCS; CPT 58563; principal; 2019-09-21 12:00)
DX: N95.0 Postmenopausal bleeding (principal); N85.8 Other specified noninflammatory disorders of uterus; I10 Essential (primary) hypertension
CPT/HCPCS: 58558; 88305; A9270; J2250; J2704; J3010; J7030; J7120

== ENCOUNTER 2022-05-23 13:46 | Emergency (ER) | payer SELFPAY ==
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
[2022-05-23 13:50] VITALS: BP 143/91; PULSE 95; RESP 16; TEMP 36.6; O2SAT 100
[2022-05-23 15:41] VITALS: BP 149/106; PULSE 98; RESP 16; TEMP 37; O2SAT 100
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
[2022-05-23 17:44] VITALS: BP 147/105; PULSE 91; RESP 14; TEMP 36.5; O2SAT 99
== END 2022-05-23 17:47 | disposition home or self-care (01) ==
PROVIDERS: Emergency Provider Physician Assistant
DX: S39.92XA Unspecified injury of lower back, initial encounter (principal); S19.9XXA Unspecified injury of neck, initial encounter; I10 Essential (primary) hypertension; Z87.440 Personal history of urinary (tract) infections; V49.50XA Passenger injured in collision with unspecified motor vehicles in traffic accident, initial encounter
CPT/HCPCS: 70450; 72125; 72131; 99284

== ENCOUNTER 2023-05-01 00:02 | Day surgery (SDC) | payer MEDICARE, SELFPAY ==
[2023-04-02 13:32] VITALS: BMI 24.5
--- NOTE | 2023-04-29 11:14 | SUR.PREOP ---
Patient called regarding upcoming procedure. Reviewed preop instructions, appointment times, and procedure prep.
--- NOTE | 2023-04-29 19:08 | P.HP_ITS ---
History of Present Illness History of Present Illness Consent: Risks, benefits, and alternatives have been discussed and questions answered. Patient agrees to proceed with procedure. Chief complaint: neoplasm screening Narrative: Chely Daniels is a 67 year old female who is referred for colon cancer screening. 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[place], 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 Gender identity (if verbalized by the patient): Female Spiritual care concerns: No Agree to blood products: Yes Meds Home Medications and Allergies Home Medications Medication Instructions Recorded Confirmed Type atorvastatin 10 mg tablet 40 mg PO HS 07/11/19 04/02/23 History acetaminophen 325 mg tablet (Mapap 650 mg PO Q4H PRN Mild Pain (1-3) 07/13/19 04/02/23 Rx (acetaminophen)) Or Fever #30 tabs lisinopril 5 mg tablet 25 mg PO DAILY 09/12/19 04/02/23 History hydrocodone 5 mg-acetaminophen 325 1 tablet PO Q4-6H PRN pain #20 tabs 09/21/19 04/02/23 Rx mg tablet (Baudette) Allergies Allergy/AdvReac Type Severity Reaction Status Date / Time No Known Allergies Allergy Verified 04/02/23 13:31 Exam Const: General: alert Orientation/consciousness: patient oriented x3 Resp: Auscultation: clear to auscultation bilaterally Cardio: Rhythm: regular rhythm GI: GI Palp: Yes Soft to palpation and No Tenderness to palpation present (GI) Neuro: General: patient oriented x3 Assessment and Plan Assessment and plan (1) Colon cancer screening: Code(s): Z12.11 - Encounter for screening for malignant neoplasm of colon Status: Acute Assessment and Plan: Colonoscopy with possible biopsy or polypectomy or cautery or injection of substances.
[2023-05-01 06:59] VITALS: BP 154/92; PULSE 123; RESP 22; TEMP 36.2; O2SAT 100
[2023-05-01] MEDS: LACTATED RINGERS 1,000 ML 150 ML IV CONT (07:24)
[2023-05-01 08:22] VITALS: BP 105/72; PULSE 90; RESP 20; O2SAT 100
[2023-05-01 08:32] VITALS: BP 122/85; PULSE 88; RESP 20; O2SAT 100
[2023-05-01 08:42] VITALS: BP 121/88; PULSE 87; RESP 20; O2SAT 100
--- NOTE | 2023-05-18 14:49 | P.PNAN_ITS ---
Anes - Initial Pre Proc Eval Procedure: Operation Date: 05/01/23 08:00 Proposed Procedures p Screening Colonoscopy - Jeremy Moore MD Date/Time: 05/18/23 14:49 Surgeon: Jeremy Moore MD Pre Op Diagnosis: neoplasm screening Patient Data Age: 67 Gender: F Height: 1.55 m Weight: 59 kg Last Vital Signs Temp 97.1 F L 05/01/23 06:59 Pulse 87 05/01/23 08:42 Resp 20 05/01/23 08:42 BP 121/88 05/01/23 08:42 Pulse Ox 100 05/01/23 08:42 O2 Del Method Room Air 05/01/23 08:42 Allergies Allergy/AdvReac Type Severity Reaction Status Date / Time No Known Allergies Allergy Verified 05/01/23 07:26 Home Medications Medication Instructions Recorded Confirmed Type atorvastatin 10 mg tablet 40 mg PO HS 07/11/19 05/01/23 History acetaminophen 325 mg tablet (Mapap 650 mg PO Q4H PRN Mild Pain (1-3) 07/13/19 05/01/23 Rx (acetaminophen)) Or Fever #30 tabs lisinopril 5 mg tablet 25 mg PO DAILY 09/12/19 05/01/23 History hydrocodone 5 mg-acetaminophen 325 1 tablet PO Q4-6H PRN pain #20 tabs 09/21/19 05/01/23 Rx mg tablet (Belk) Patient hx anesthesia problems: none Family hx anesthesia problems: none Results Review: All pre-operative results and documents have been reviewed as part of the pre- operative evaluation. 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 Informed Consent: The patient's anesthetic plan and its attendant risks and benefits were discussed with the patient/family/POA. Questions were solicited and answers provided to the satisfaction of the patient/family/POA.
== END 2023-05-01 08:52 | disposition home or self-care (01) ==
PROVIDERS: Visit Provider Internal Medicine Gastroenterology
PROC: 0DJD8ZZ Inspection of Lower Intestinal Tract, Via Natural or Artificial Opening Endoscopic (ICD-10-PCS; CPT 45378; principal; 2023-05-01 08:00)
DX: Z12.11 Encounter for screening for malignant neoplasm of colon (principal); K64.8 Other hemorrhoids; I10 Essential (primary) hypertension
CPT/HCPCS: G0121; J2704; J7120

== ENCOUNTER 2024-10-17 01:44 | Emergency (ER) | payer MEDICARE, SELFPAY ==
--- OUTSIDE RECORDS SUMMARY | 2024-10-17 01:47 | XMS_ITS | Data Portability ---
Author Organization [place] - [facility], Main Office Address [address] [place] [address] Assessment No assessment recorded. Plan of Treatment Reminders Order Date Submit Date Provider Last Modified By Organization Details Last Modified Time Details Appointments Any 15 2024 02:15P Prakash phillips MD Not available Not available Not available Lab lipid panel, serum [address] [facility] (Lab), [address] [place], [address], 07/29/2024 13:20:34 CBC w/ auto diff [address] [facility] (Lab), [address] [place], [address], 07/29/2024 13:42:50 TSH, serum or plasma [address] [facility] (Lab), [address] [place], [address], 07/29/2024 13:37:35 CMP, serum or plasma [address] [facility] (Lab), [address] [place], [address], 07/29/2024 13:20:39 Referral None recorded. Procedures None recorded. Surgeries None recorded. Imaging MAMMO, screening , digital, bilateral - Please call patient to schedule. [email or web address] [place] [address] ([facility]), [address] [place], [address], 08/18/2024 17:15:42 DEXA, axial skeleton - Please call patient to schedule. 2024 [email or web address] [facility] ([facility]), [address], [place], [address], 08/18/2024 17:15:42 Medication Orders lisinopri l 40 mg tablet 2024 [facility]/Pharmacy #[id number], [address], [place], [address], 07/19/2024 15:52:00 atorvasta tin 40 mg tablet 2024 [facility]/Pharmacy #[id number], [address], [place], [address], 07/19/2024 15:52:01 Patient TargetsNo targets recorded. Patient InstructionsNo instructions recorded. Reason for Referral None Reported. Problems Name Problem SNOMED Code Status Onset Date Resolution Date Notes Provider Name and Address Organization Details Recorded Time Essential hypertension 71539028 Active 2024 Reema phillips MD [address], [place], [address], [place] [facility] 11:57:04 Hyperlipidemia 16983076 Active 2024 Reema phillips MD [address], [place], [address], [place] [facility] 11:57:07 Asthma 735471778 Active 2024 Reema phillips MD [address], [place], [address], [place] [facility] 15:37:17 Bilateral cataracts 39354530 Active 2024 Reema phillips MD [address], [place], [address] [facility] [place] 17:05:50 Problem Notes None recorded. Medical Equipment None Reported. Allergies No known drug allergies Medications Name Sig Start Date Stop Date Status Note LastModified by Organization Details LastModified Time atorvastatin 40 mg tablet Take 1 tablet every day by oral route for 90 days. 2024 active Not Available Not Available Not Avai lable albuterol sulfate HFA 90 mcg/actuation aerosol inhaler INHALE 2 PUFFS BY MOUTH 20 MINUTES BEFORE WORK active Not Available Not Available No t Available lisinopril 40 mg tablet Take 1 tablet every day by oral route for 90 days. 2024 active Not Available Not Available Not Avai lable calcium 600 mg (as carbonate)-vit cifuentes D3 10 mcg (400 unit) tablet TAKE 1 TABLET BY MOUTH TWICE A DAY active Not Available Not Available No t Available Vitals Date Recorded Body weight Body mass index (BMI) Body height Body temperature Heart rate Systolic And Diastolic Provider Name and Address Organization Details Last Updated DateTime 5 20261.6 8 g 22.9 kg/m2 154.94 cm 97.2 [degF] 96 /min 120/70 mm[Hg] KLEVER Segura [place] 15:14:23 Social History Question Answer Notes LastModified by Organizat ion Details LastModified Time Tobacco Smoking Status Never Smoker KLEVER Segura null, [place] 07/19/2024 15:09:38 Do You Have An Advance Directive? No Information not available 07/19/2024 Are You Blind Or Do You Have Difficulty Seeing? No Information not available 07/19/2024 What Is Your Level Of Caffeine Consumption? Heavy Information not available 07/19/2024 In The 14 Days Before Symptom Onset, Have You Had Close Contact With A Laboratory-confir med COVID-19 While That Case Was Ill? No Information not available 07/19/2024 In The 14 Days Before Symptom Onset, Have You Had Close Contact With A Person Who Is Under Investigation For COVID-19 While That Person Was Ill? No Information not available 07/19/2024 Are You Deaf Or Do You Have Serious Difficulty Hearing? No Information not available 07/19/2024 What Type Of Diet Are You Following? REGULAR Information not available 07/19/2024 What Is The Highest Grade Or Level Of School You Have Completed Or The Highest Degree You Have Received? [id number] Information not available 07/19/2024 What Is The Fluoride Status Of Your Home? Unknown Information not available 07/19/2024 Are There Any Guns Present In Your Home? No Information not available 07/19/2024 Where Do You Live? SingleLevelHouse Information not available 07/19/2024 Do You Have A Medical Power Of Sales Planning Manager? No Information not available 07/19/2024 What Was The Date Of Your Most Recent Tobacco Screening? 07/19/2024 Information not available 07/19/2024 Do You Have Any Pets? No Information not available 07/19/2024 What Is Your Relationship Status? Information not available 07/19/2024 Do You Use Your Seat Belt Or Car Seat Routinely? Yes Information not available 07/19/2024 Do You Have Smoke And Carbon Monoxide Detectors In Your Home? Yes Information not available 07/19/2024 Are You Passively Exposed To Smoke? Yes Information no t available 07/19/2024 Are There Any Smokers In Your House? Yes Information not available 07/19/2024 Has Tobacco Cessation Counseling Been Provided? No N/a Information not available 07/19/2024 Have You Recently Traveled Abroad? No Information not available 07/19/2024 Do You Have Difficulty Walking Or Climbing Stairs? No Information not available 07/19/2024 Sex: Female Functional Status Question Answer Note LastModified by Organizat ion Details LastModified Time Do you use any illicit or recreational drugs? No Information not available 07/19/2024 Do you or have you ever used any other forms of tobacco or nicotine? No Information not available 07/19/2024 What is your level of alcohol consumption? None Information not available 07/19/2024 Are you currently employed? Yes Information not available 07/19/2024 Are you able to walk? YESWOREST Information not available 07/19/2024 Do you have difficulty doing errands alone? No Information not available 07/19/2024 Are you able to care for yourself? 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 No Information not available 07/19/2024 What is your exercise level? Occasional stays active with work Information not available 07/19/2024 Mental Status Question Answer Note LastModified by Organizat ion Details LastModified Time Do you feel stressed (tense, restless, nervous, or anxious, or unable to sleep at night)? [id number] Information not available 07/19/2024 Do you have difficulty concentrating, remembering or making decisions? No Information no t available 07/19/2024 Family History Relationship Description Onset Age of this Age Resolved Age Notes LastModified by Organization Details LastModified Time Father Hypertensive disorder Not available 2024 15:07:13 Father Diabetes mellitus Not available 2024 15:07:20 Father Hyperlipidem ia Not available 2024 15:07:37 Father Malignant neoplasm of prostate Not available 2024 15:08:21 Mother Hypertensive disorder Not available 2024 15:07:54 Medical History No medical history recorded. Gynecological HistoryNo gynecological history recorded. Obstetrics History GPAL:G 0 P 0 0 0 0 Immunizations Vaccine Type Date Status Note Provider Nam e and Address Organization Details Recorded Time Influenza, split virus, quadrivalent, preservative 3 completed KLEVER Segura, [facility] [employer] [facility] 07/19/2024 15:06:40 Influenza, high-dose, quadrivalent, PF 3 completed KLEVER Segura [place] [facility] 07/19/2024 15:06:40 COVID-19, mRNA, LNP-S, PF, 30 mcg/0.3 mL dose 1 completed Maddy Morgan RMMarlene brown, [facility] 07/19/2024 15:06:40 COVID-19, mRNA, LNP-S, PF, 30 mcg/0.3 mL dose 1 completed Maddy Morgan RMA null, [facility] 07/19/2024 15:06:40 COVID-19, mRNA, LNP-S, PF, 30 mcg/0.3 mL dose 1 completed Maddy Morgan RMMarlene brown, [facility] 07/19/2024 15:06:40 Past Encounters Encounter ID Performer Location Encounter Start Date Encounter Closed Date Diagnosis/Indication Diagnosis SNOMED-CT Code Diagnosis ICD10 Code Diagnosis Note [id number] Reema [address] MD [facility] Internal Med [facility] [address] [facility], [address] [place] [address] 07/19/2024 14:51:49 07/19/2024 15:53:56 Screening - NAD 541030620 Z13.9 C-scope: Did get this in 2022 as per her history and next in 10 years Mammogram: Get this PAP: Get this DEXA: Get this Get yearly flu shot, get tdap if not doneGet shingrix vaccineCan do COVID 19 boostersCa n do RSV vaccine and Prevnar #20 RTC in 3 months, do labs, ER if worse, she did verbalize her understand ing of the above Essential hypertension 92259638 I10 On lisinopril 40mg dailyGet labs Hyperlipidemia 12634247 E78.5 On atorvastat in 40mg dailyGet labs Postmenopausal state 764 72249 Z78.0 Screening mammography 24 183725 Z12.31 Asthma 520410308 J45.90 9 On albuterolD oes well Bilateral cataracts 9572 2003 H26.9 States that she does see her eye MD and there is discussion to do cataract surgery Health Concerns Section Related Observation LastModified by Organization Erasmo ls LastModified Time None Recorded Concern Status LastModified by Organization Details LastModified Time None Recorded Advance Directives Directive N: Payers Insurance Date Sequence Insurance Name Policy Number Policy Cohn Covered Member ID Cohn Member ID Guarantor Name 05/12/2024 1 AEAlmaNELSON Edwardrett [id number] Chely Edwardrett 08/05/2024 1 [employer] (MEDICARE REPLACEMENT/ ADVANTAGE - PPO) [id number] Chely Edwardrett [id number] Chely Edwardrett Notes Date Note Type Note Provider Name and Address Organization Details Recorded Time 07/19/2024 text/html OV 07/19/2024:Here to establish care Present Hx:HTNHLDAsthma Here to get labs, she is employed at [employer] and [facility], [facility] labs Reema Werner MD [address] [place] [address], [facility] [address], [place], [address], [place] - [facility] 07/19/2024 17:06:48 OBGyn Episode No OBEpisode recorded.
--- OUTSIDE RECORDS SUMMARY | 2024-10-17 01:48 | XMS_ITS | Data Portability ---
[facility] Address [address] [place] [address] Care Team Providers Care Station Examiner Name Role Phone SANDI JONES Primary Care Provider [phone] Assessment No assessment recorded. Plan of Treatment Reminders Order Date Submit Date Provider Last Modified By Organization Details Last Modified Time Details Appointments None recorded . Lab lipid panel, serum 2023 024 [facility], [address], [place], [address], 4 13:10:03 urinalys is complete , reflex culture 2023 024 [facility], [address], [place], [address], 4 13:10:05 CMP, serum or plasma 2023 024 [facility], [address], [place], [address], 4 13:10:04 HbA1c (hemoglo bin A1c), blood 2023 024 [facility], [address], [place], [address], 4 13:10:05 HbA1c (hemoglo bin A1c), blood 2022 023 [facility], [address], [place], [address], 3 07:13:58 CMP, serum or plasma 2022 023 [facility], [address], [place], [address], 3 06:16:25 CBC w/ auto diff 2022 023 [facility], [address], [place], [address], 3 06:16:26 albumin/ creatini ne, mass ratio, urine 2022 023 [facility], [address], [place], [address], 3 07:13:58 lipid panel, serum 2022 023 [facility], [address], [place], [address], 3 06:16:[address] referral - Needs colonosc opy 2022 023 aidan Kumar MD, [address] [facility] [address], [place], [address], 4 10:29:53 Procedures None recorded . Surgeries None recorded . Imaging MAMMO, screenin g, digital, bilatera l 2023 024 [facility] ([facility]), [address] [place], [address], 4 14:32:26 DEXA 2022 023 [facility] ([facility]), [address] [place], [address], 3 10:18:45 Medication Orders calcium 600 mg (as carbonat e)-vitam in D3 10 mcg (400 unit) tablet 2023 024 [id number], [address], [place], [address], 4 13:11:34 atorvast atin 40 mg tablet 2023 024 [id number], [address], [place], [address], 4 12:23:24 lisinopr il 40 mg tablet 2023 024 [id number], [address], [place], [address], 4 12:23:24 albutero l sulfate HFA 90 mcg/actu ation aerosol inhaler 2023 024 [id number], [address], [place], [address], 4 12:07:32 lisinopr il 40 mg tablet 2022 023 [address] [id number], [address], [place], [address], 3 12:26:27 atorvast atin 40 mg tablet 2022 023 [address] [facility] [id number], [address], [place], [address], 3 12:26:27 lisinopr il 20 mg-hydro chloroth iazide 12.5 mg tablet [address] [facility], [address] [place] [address], [id number], 3 12:19:54 atorvast atin 40 mg tablet 2022 023 [facility], [address] [place] [address], [id number], 12:41:36 ibuprofe n 800 mg tablet 2022 023 [email or web address], [address] [place] [address], [id number], 12:04:07 cycloben zaprine 5 mg tablet 2022 023 [facility], [address] [place] [address], [id number], 12:19:58 Patient TargetsNo targets recorded. 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 Not Available [facility] ([facility]) [address] [facility], [place], [address], 04/03/2022 11:11:51 03/27/20 22 04/03/2022 IGP, APTIM A HPV diagnosis: Chrissy t ELENA TORRESE FOR INTRA EPITH ELIAL LESIO N OR ELIDA HANSEN . Not Available [facility] ([facility]) [address] [place], [address], 04/03/2022 11:11:51 03/27/20 22 04/03/2022 IGP, APTIM A HPV specimen adequacy: Chrissy t Satis facto ry for evalu ation . Endoc ervic al and/o r squam ous metap lasti c cells (endo cervi luisito compo nent) are prese nt. Not Available [facility] ([facility]) [address] [place], [address], 04/03/2022 11:11:51 03/27/20 22 04/03/2022 IGP, APTIM A HPV clinician provided ICD10: Chrissy rico Z01.4 19 Not Available [facility] ([facility]) [address] [place], [address], 04/03/2022 11:11:51 03/27/20 22 04/03/2022 IGP, APTIM A HPV performed by: Chrissy Leon Cytot agustina rico Not Available [facility] ([facility]) [address] [place], [address], 04/03/2022 11:11:51 03/27/20 22 04/03/2022 IGP, APTIM A HPV . . Not Available [facility] ([facility]) [address] [place], [address], 04/03/2022 11:11:51 03/27/20 22 04/03/2022 IGP, APTIM A HPV note: Chrissy t The Pap smear is a scree emelia test desig uriel to aid in the detec tion of elsie ligna nt and malig nant condi tions of the uteri ne cervi x. It is not a diagn ostic proce dure and shoul d not be used as the sole means of detec ting cervi luisito cance r. Both false -posi tive and false -nega tive repor ts do occur . Not Available [facility] ([facility]) [address] [facility], [place], [address], 04/03/2022 11:11:51 03/27/20 22 04/03/2022 IGP, APTIM A HPV test methodology: Commen t This liqui d based ThinP rep(R ) pap test was scree uriel with the use of an image guide d systmadison m. Not Available [facility] ([facility]) [address] [facility], [place], [address], 04/03/2022 11:11:51 03/27/20 22 03/27/2022 urina lysis , dipst ick Leukocytes Negati ve Not Available In-Office Order Internal Use Only DO Not Attach Compendium DO Not Attach Compendium, Do Not Delete/merge, [id number] 03/27/2022 13:11:10 03/27/20 22 03/27/2022 urina lysis , dipst ick Nitrite negati ve Not Available In-Office Order Internal Use Only DO Not Attach Compendium DO Not Attach Compendium, Do Not Delete/merge, [id number] 03/27/2022 13:11:10 03/27/20 22 03/27/2022 urina lysis , dipst ick Urobilinogen .2 Not Available In-Of fice Order Internal Use Only DO Not Attach Compendium DO Not Attach Compendium, Do Not Delete/merge, [id number] 03/27/2022 13:11:10 03/27/20 22 03/27/2022 urina lysis , dipst ick Protein Negati ve Not Available In-Office Order Internal Use Only DO Not Attach Compendium DO Not Attach Compendium, Do Not Delete/merge, [id number] 03/27/2022 13:11:10 03/27/20 22 03/27/2022 urina lysis , dipst ick pH 5.5 Not Available In-Office Order Internal Use Only DO Not Attach Compendium DO Not Attach Compendium, Do Not Delete/merge, [facility] 03/27/2022 13:11:10 03/27/20 22 03/27/2022 urina lysis , dipst ick Blood Negati ve Not Available In-Office Order Internal Use Only DO Not Attach Compendium DO Not Attach Compendium, Do Not Delete/merge, [facility] 03/27/2022 13:11:10 03/27/20 22 03/27/2022 urina lysis , dipst ick Specific [place] 1.030 Not Available In-Off ice Order Internal Use Only DO Not Attach Compendium DO Not Attach Compendium, Do Not Delete/merge, [facility] 03/27/2022 13:11:10 03/27/20 22 03/27/2022 urina lysis , dipst ick Ketone Negati ve Not Available In-Office Order Internal Use Only DO Not Attach Compendium DO Not Attach Compendium, Do Not Delete/merge, [facility] 03/27/2022 13:11:10 03/27/20 22 03/27/2022 urina lysis , dipst ick Bilirubin Negati ve Not Available In-Office Order Internal Use Only DO Not Attach Compendium DO Not Attach Compendium, Do Not Delete/merge, [facility] 03/27/2022 13:11:10 03/27/20 22 03/27/2022 urina lysis , dipst ick Glucose Negati ve Not Available In-Office Order Internal Use Only DO Not Attach Compendium DO Not Attach Compendium, Do Not Delete/merge, [facility] 03/27/2022 13:11:10 03/27/20 22 03/27/2022 urina lysis , dipst ick Appearance Clear Not Available In-Offi ce Order Internal Use Only DO Not Attach Compendium DO Not Attach Compendium, Do Not Delete/merge, [facility] 03/27/2022 13:11:10 03/27/20 22 03/27/2022 urina lysis , dipst ick Color Yellow Not Available In-Office Order Internal Use Only DO Not Attach Compendium DO Not Attach Compendium, Do Not Delete/merge, [id number] 03/27/2022 13:11:10 02/14/2002/13/2023 LIPID PANEL cholesterol, total 198 mg/dL 100-19 9 Not Available [facility] [address] [place], [address], 02/14/2023 06:16:24 02/14/20 23 02/13/2023 LIPID PANEL triglyceride s 73 mg/dL 0-149 Not Available [facility] [address] [place], [address], 02/14/2023 06:16:24 02/14/2002/13/2023 LIPID PANEL HDL cholesterol 84 mg/dL 40-999 Not Available [facility] [address] [place], [address], 02/14/2023 06:16:24 02/14/20 23 02/13/2023 LIPID PANEL VLDL cholesterol luisito 15 mg/dL 5-40 Not Available [facility] [address] [place], [address], 02/14/2023 06:16:24 02/14/20 23 02/13/2023 LIPID PANEL LDL chol calc (nih) 110 mg/dL 0-99 above high normal Not Available [facility] [address] [place], [address], 02/14/2023 06:16:24 02/14/2002/13/2023 COMP. METAB OLIC PANEL (14) glucose 95 mg/dL 70-99 Not Available [facility] [address] [place], [address], 02/14/2023 06:16:25 02/14/20 23 02/13/2023 COMP. METAB OLIC PANEL (14) BUN 13 mg/dL 8-27 Not Available [facility] [address] [place], [address], 02/14/2023 06:16:25 02/14/20 23 02/13/2023 COMP. METAB OLIC PANEL (14) creatinine 0.70 mg/dL 0.76-1 .27 below low normal Not Available [facility] [address] [place], [address], 02/14/2023 06:16:25 02/14/20 23 02/13/2023 COMP. METAB OLIC PANEL (14) eGFR 96 >=60 Units for eGFR value s are mL/mi n/1.7 3 The eGFR Calcu latio n has not been valid ated for patie nts under the age of 18. If test resul ts are displ ayed for a patie nt under the age of 18, disre kaitlin that value . Not Available [facility] [address] [place], [address], 02/14/2023 06:16:25 02/14/20 23 02/13/2023 COMP. METAB OLIC PANEL (14) BUN/creatini ne ratio 19 10-28 Not Available [facility] [address] [place], [address], 02/14/2023 06:16:25 02/14/20 23 02/13/2023 COMP. METAB OLIC PANEL (14) sodium 145 mmol/ L 134-14 4 above high normal Not Available [facility] [address] [place], [address], 02/14/2023 06:16:25 02/14/20 23 02/13/2023 COMP. METAB OLIC PANEL (14) potassium 4.8 mmol/ L 3.5-5. 2 Not Available [facility] [address] [place], [address], 02/14/2023 06:16:25 02/14/20 23 02/13/2023 COMP. METAB OLIC PANEL (14) chloride 106 mmol/ L 96-106 Not Available [facility] [address] [place] [address], [address], 02/14/2023 06:16:25 02/14/20 23 02/13/2023 COMP. METAB OLIC PANEL (14) carbon dioxide, total 25 mmol/ L Not Available [facility] [address] [place], [address], 02/14/2023 06:16:25 02/14/20 23 02/13/2023 COMP. METAB OLIC PANEL (14) calcium 10.6 mg/dL 8.7-10 .3 above high normal Not Available [facility] [address] [place], [address], 02/14/2023 06:16:25 02/14/20 23 02/13/2023 COMP. METAB OLIC PANEL (14) protein, total 8.1 g/dL 6.0-8. 5 Not Available [facility] [address] [place], [address], 02/14/2023 06:16:25 02/14/20 23 02/13/2023 COMP. METAB OLIC PANEL (14) albumin 5.0 g/dL 3.8-4. 8 above high normal Not Available [facility] [address] [place], [address], 02/14/2023 06:16:25 02/14/20 23 02/13/2023 COMP. METAB OLIC PANEL (14) globulin, total 3.1 g/dL 1.5-4. 5 Not Available [facility] [address] [place], [address], 02/14/2023 06:16:25 02/14/20 23 02/13/2023 COMP. METAB OLIC PANEL (14) A/G ratio 2.0 1.2-2. 2 Not Available [facility] [address] [place], [address], 02/14/2023 06:16:25 02/14/20 23 02/13/2023 COMP. METAB OLIC PANEL (14) bilirubin, total 0.8 mg/dL 0.0-1. 2 Not Available [facility] [address] [place], [address], 02/14/2023 06:16:25 02/14/20 23 02/13/2023 COMP. METAB OLIC PANEL (14) alkaline phosphatase 108 IU/L 44-121 Not Available [facility] [address] [place] [address], [address], 02/14/2023 06:16:25 02/14/2002/13/2023 COMP. METAB OLIC PANEL (14) AST (SGOT) 31 IU/L 0-40 Not Available [facility] [address] [place] [address], [address], 02/14/2023 06:16:25 02/14/20 23 02/13/2023 COMP. METAB OLIC PANEL (14) ALT (SGPT) 21 IU/L 0-32 Not Available [facility] [address] [place] [address], [address], 02/14/2023 06:16:25 02/14/20 23 02/13/2023 CBC WITH DIFFE RENTI AL/PL ATELE T WBC 4.3 x10e3 /uL 3.4-10 .8 Not Available [facility] [address] [place], [address], 02/14/2023 06:16:25 02/14/20 23 02/13/2023 CBC WITH DIFFE RENTI AL/PL ATELE T RBC 4.54 x10e6 /uL 3.77-5 .28 Not Available [facility] [address] [place], [address], 02/14/2023 06:16:25 02/14/20 23 02/13/2023 CBC WITH DIFFE RENTI AL/PL ATELE T hemoglobin 13.5 g/dL 11.1-1 5.9 Not Available [facility] [address] [place], [address], 02/14/2023 06:16:25 02/14/2002/13/2023 CBC WITH DIFFE RENTI AL/PL ATELE T hematocrit 42.9 % 34.0-4 6.6 Not Available [facility] [address] [place], [address], 02/14/2023 06:16:25 02/14/2002/13/2023 CBC WITH DIFFE RENTI AL/PL ATELE T MCV 95 fL 79-97 Not Available [facility] [address] [place], [address], 02/14/2023 06:16:25 02/14/2002/13/2023 CBC WITH DIFFE RENTI AL/PL ATELE T MCH 29.7 pg 26.6-3 3.0 Not Available [facility] [address] [place], [address], 02/14/2023 06:16:25 02/14/20 23 02/13/2023 CBC WITH DIFFE RENTI AL/PL ATELE T MCHC 31.5 g/dL 31.5-3 5.7 Not Available [facility] [address] [place], [address], 02/14/2023 06:16:25 02/14/20 23 02/13/2023 CBC WITH DIFFE RENTI AL/PL ATELE T RDW 13.0 % 11.5-1 4.5 Not Available [facility] [address] [place], [address], 02/14/2023 06:16:25 02/14/2002/13/2023 CBC WITH DIFFE RENTI AL/PL ATELE T platelets 204 x10e3 /uL 150-45 0 Not Available [facility] [address] [place], [address], 02/14/2023 06:16:25 02/14/20 23 02/13/2023 CBC WITH DIFFE RENTI AL/PL ATELE T neutrophils 46 % notest b. Not Available [facility] [address] [place], [address], 02/14/2023 06:16:25 02/14/20 23 02/13/2023 CBC WITH DIFFE RENTI AL/PL ATELE T lymphs 42 % notest b. Not Available [facility] [address] [place], [address], 02/14/2023 06:16:25 02/14/2002/13/2023 CBC WITH DIFFE RENTI AL/PL ATELE T monocytes 7 % notest b. Not Available [facility] [address] [place], [address], 02/14/2023 06:16:25 02/14/20 23 02/13/2023 CBC WITH DIFFE RENTI AL/PL ATELE T eos 4 % notest b. Not Available [facility] [address] [place], [address], 02/14/2023 06:16:25 02/14/20 23 02/13/2023 CBC WITH DIFFE RENTI AL/PL ATELE T basos 1 % notest b. Not Available [facility] [address] [place], [address], 02/14/2023 06:16:25 02/14/20 23 02/13/2023 CBC WITH DIFFE RENTI AL/PL ATELE T neutrophils (absolute) 2.0 x10e3 /uL 1.4-7. 0 Not Available [facility] [address] [place], [address], 02/14/2023 06:16:25 02/14/20 23 02/13/2023 CBC WITH DIFFE RENTI AL/PL ATELE T lymphs (absolute) 1.8 x10e3 /uL 0.7-3. 1 Not Available [facility] [address] [place], [address], 02/14/2023 06:16:25 02/14/20 23 02/13/2023 CBC WITH DIFFE RENTI AL/PL ATELE T monocytes(ab solute) 0.3 x10e3 /uL 0.1-0. 9 Not Available [facility] [address] [place], [address], 02/14/2023 06:16:25 02/14/2002/13/2023 CBC WITH DIFFE RENTI AL/PL ATELE T eos (absolute) 0.2 x10e3 /uL 0.0-0. 4 Not Available [facility] [address] [place], [address], 02/14/2023 06:16:25 02/14/2002/13/2023 CBC WITH DIFFE RENTI AL/PL ATELE T baso (absolute) 0.0 x10e3 /uL 0.0-0. 2 Not Available [facility] [address] [place], [address], 02/14/2023 06:16:25 02/14/2002/13/2023 CBC WITH DIFFE RENTI AL/PL ATELE T immature granulocytes 0.2 % notest b. Not Available [facility] [address] [place], [address], 02/14/2023 06:16:25 02/14/20 23 02/13/2023 CBC WITH DIFFE RENTI AL/PL ATELE T immature grans (abs) 0.0 x10e3 /uL 0.0-0. 1 Not Available [facility] [address] [place], [address], 02/14/2023 06:16:25 02/14/20 23 02/13/2023 CBC WITH DIFFE RENTI AL/PL ATELE T NRBC 0 % 0-0 Not Available [facility] [address] [place], [address], 02/14/2023 06:16:25 02/14/20 23 02/14/2023 ALBUM IN/CR EATIN INE RATIO ,URIN E creatinine, urine 92.1 mg/dL notest ab. Not Available [facility] [address] [place], [address], 02/14/2023 07:13:57 02/14/20 23 02/14/2023 ALBUM IN/CR EATIN INE RATIO ,URIN E albumin, urine 7.1 ug/mL notest ab. Not Available [facility] [address] [place], [address], 02/14/2023 07:13:57 02/14/20 23 02/14/2023 ALBUM IN/CR EATIN INE RATIO ,URIN E alb/creat ratio 8 mg/g_ creat 0-29 Yovana l: 0 - 29 Moder ately incre ased: 30 - 300 Sever aba incre ased: >300 Not Available [facility]) [address] [place], [address], 02/14/2023 07:13:57 02/14/20 23 02/14/2023 HEMOG LOBIN A1C hemoglobin A1C 6.2 % 4.8-5. 6 above high normal Predi abete s: 5.7 - 6.4 Diabe abhinav: >6.4 Glyce corona contr ol for adult s with diabe abhinav: <7.0 Not Available [facility]) [address] [place], [address], 02/14/2023 07:13:58 03/10/20 23 03/10/2023 MAGNE SIUM magnesium 1.8 mg/L 1.6-2. 3 Not Available [facility] [address] [place], [address], 03/11/2023 06:20:49 03/10/20 23 03/11/2023 PTH INTAC T+LUISITO CIUM, IONIZ ED calcium, ionized, serum 5.4 mg/dL 4.5-5. 6 Not Available [facility] [address] [facility], [place], [address], 03/11/2023 13:10:24 03/10/20 23 03/11/2023 PTH INTAC T+LUISITO CIUM, IONIZ ED PTH, intact 32 pg/mL 15-65 Not Available [facility] [address] [facility], [place], [address], 03/11/2023 13:10:24 03/10/20 23 03/11/2023 PHOSP HORUS phosphorus 3.4 mg/dL 3.0-4. 3 Not Available [facility] [address] [facility], [place], [address], 03/11/2023 13:10:25 03/10/20 23 03/11/2023 VITAM IN D, 25-HY DROXY vitamin D, 25-hydroxy 31.2 NG/mL 30.0-1 00.0 Vitam in D defic iency has been defin ed by the Insti tute of Medic ine and an Endoc rine Socie ty pract ice guide line as a level of serum 25-OH vitam in D less than 20 ng/mL (1,2) . The Endoc rine Socie ty went on to [facility] er defin e vitam in D insuf ficie ncy as a level betwe en 21 and 29 ng/mL (2). 1. IOM (Inst itute of Medic ine). 2009. Dieta ry refer ence intak es for calci um and D. Jeffrey schmitt [place]: The Natio nal [place] [facility] Press . 2. Reta maurice MF, Brooke ey [place], Bisnehemias off-F errar i SANTOS, et al. Evalu ation , treat ment, and preve ntion of vitam in D defic iency : an Endoc rine Socie ty clini luisito pract ice guide line. JCEM. 2010; 96(7) :1911 -30. Not Available [facility] [address] [place], [address], 03/11/2023 13:10:26 09/18/19 24 09/19/2023 LIPID PANEL cholesterol, total 158 mg/dL 100-19 9 Not Available [facility] [address] [place], [address], 09/19/2023 13:10:03 09/18/19 24 09/19/2023 LIPID PANEL triglyceride s 48 mg/dL 0-149 Not Available [facility] [address] [place], [address], 09/19/2023 13:10:03 09/18/19 24 09/19/2023 LIPID PANEL HDL cholesterol 83 mg/dL >39 Not Available [facility] [address] [place], [address], 09/19/2023 13:10:03 09/18/19 24 09/19/2023 LIPID PANEL VLDL cholesterol luisito 10 mg/dL 5-40 Not Available [facility] [address] [place], [address], 09/19/2023 13:10:03 09/18/19 24 09/19/2023 LIPID PANEL LDL chol calc ([facility]) 65 mg/dL 0-99 Not Available [facility] [address] [place], [address], 09/19/2023 13:10:03 09/18/19 24 09/19/2023 COMP. METAB OLIC PANEL (14) glucose 97 mg/dL 70-99 Not Available [facility] [address] [place], [address], 09/19/2023 13:10:04 06/21/20 24 09/19/2023 COMP. METAB OLIC PANEL (14) BUN 17 mg/dL 8-27 Not Available [facility] [address] [facility], [place], [address], 09/19/2023 13:10:04 09/18/19 24 09/19/2023 COMP. METAB OLIC PANEL (14) creatinine 0.74 mg/dL 0.57-1 .00 Not Available [facility] [address] [facility], [place], [address], 09/19/2023 13:10:04 09/18/19 24 09/19/2023 COMP. METAB OLIC PANEL (14) eGFR 90 mL/mi n/1.7 3 >59 Not Available [facility] [address] [facility], [place], [address], 09/19/2023 13:10:04 09/18/19 24 09/19/2023 COMP. METAB OLIC PANEL (14) BUN/creatini ne ratio 23 12-28 Not Available [facility] [address] [facility], [place], [address], 09/19/2023 13:10:04 09/18/19 24 09/19/2023 COMP. METAB OLIC PANEL (14) sodium 146 mmol/ L 134-14 4 above high normal Not Available [facility] [address] [place], [address], 09/19/2023 13:10:04 09/18/19 24 09/19/2023 COMP. METAB OLIC PANEL (14) potassium 4.0 mmol/ L 3.5-5. 2 Not Available [facility] [address] [facility], [place], [address], 09/19/2023 13:10:04 09/18/19 24 09/19/2023 COMP. METAB OLIC PANEL (14) chloride 109 mmol/ L 96-106 above high normal Not Available [facility] [address] [facility] [place], [address], 09/19/2023 13:10:04 09/18/19 24 09/19/2023 COMP. METAB OLIC PANEL (14) carbon dioxide, total 23 mmol/ L 20-29 Not Available [facility] [address] [facility] [place], [address], 09/19/2023 13:10:04 09/18/19 24 09/19/2023 COMP. METAB OLIC PANEL (14) calcium 10.0 mg/dL 8.7-10 .3 Not Available [facility] [address] [place], [address], 09/19/2023 13:10:04 09/18/19 24 09/19/2023 COMP. METAB OLIC PANEL (14) protein, total 7.3 g/dL 6.0-8. 5 Not Available [facility] [address] [facility] [place], [address], 09/19/2023 13:10:04 09/18/19 24 09/19/2023 COMP. METAB OLIC PANEL (14) albumin 4.6 g/dL 3.9-4. 9 Not Available [facility] ([facility]) [address] [facility] [place], [address], 09/19/2023 13:10:04 09/18/19 24 09/19/2023 COMP. METAB OLIC PANEL (14) globulin, total 2.7 g/dL 1.5-4. 5 Not Available [facility] ([facility]) [address] [facility] [place], [address], 09/19/2023 13:10:04 09/18/19 24 09/19/2023 COMP. METAB OLIC PANEL (14) bilirubin, total 0.8 mg/dL 0.0-1. 2 Not Available [facility] ([facility]) [address] [facility], [place], [address], 09/19/2023 13:10:04 09/18/19 24 09/19/2023 COMP. METAB OLIC PANEL (14) alkaline phosphatase 103 IU/L 44-121 Not Available [facility] ([facility]) [address] [facility], [place], [address], 09/19/2023 13:10:04 09/18/19 24 09/19/2023 COMP. METAB OLIC PANEL (14) AST (SGOT) 25 IU/L 0-40 Not Available [facility] ([facility]) [address] [facility], [place], [address], 09/19/2023 13:10:04 09/18/19 24 09/19/2023 COMP. METAB OLIC PANEL (14) ALT (SGPT) 19 IU/L 0-32 Not Available [facility] ([facility]) [address] [facility], [place], [address], 09/19/2023 13:10:04 09/18/19 24 09/19/2023 UA WITH CULTU RE REFLE X specific gravity 1.022 1.005- 1.030 Not Available [facility] ([facility]) [address] [facility], [place], [address], 09/19/2023 13:10:05 09/18/19 24 09/19/2023 UA WITH CULTU RE REFLE X pH 5.5 5.0-7. 5 Not Available [facility] ([facility]) [address] [facility], [place], [address], 09/19/2023 13:10:05 09/18/19 24 09/19/2023 UA WITH CULTU RE REFLE X urine-color YELLOW yellow Not Available [facility] ([facility]) [address] [facility], [place], [address], 09/19/2023 13:10:05 09/18/19 24 09/19/2023 UA WITH CULTU RE REFLE X appearance CLEAR clear Not Available [facility] ([facility]) [address] [facility], [place], [address], 09/19/2023 13:10:05 09/18/19 24 09/19/2023 UA WITH CULTU RE REFLE X WBC esterase NEGATI VE negati ve Not Available [facility] ([facility]) [address] [facility], [place], [address], 09/19/2023 13:10:05 09/18/19 24 09/19/2023 UA WITH CULTU RE REFLE X protein NEGATI VE negati ve/tra ce Not Available [facility] ([facility]) [address] [facility], [place], [address], 09/19/2023 13:10:05 09/18/19 24 09/19/2023 UA WITH CULTU RE REFLE X glucose NEGATI VE negati ve Not Available [facility] ([facility]) [address] [facility], [place], [address], 09/19/2023 13:10:05 09/18/19 24 09/19/2023 UA WITH CULTU RE REFLE X ketones NEGATI VE negati ve Not Available [facility] ([facility]) [address] [facility], [place], [address], 09/19/2023 13:10:05 09/18/19 24 09/19/2023 UA WITH CULTU RE REFLE X occult blood NEGATI VE negati ve Not Available [facility] ([facility]) [address] [place], [address], 09/19/2023 13:10:05 09/18/19 24 09/19/2023 UA WITH CULTU RE REFLE X bilirubin NEGATI VE negati ve Not Available [facility] ([facility]) [address] [place], [address], 09/19/2023 13:10:05 09/18/19 24 09/19/2023 UA WITH CULTU RE REFLE X urobilinogen ,semi-qn 0.2 mg/dL 0.2-1. 0 Not Available [facility] ([facility]) [address] [place], [address], 09/19/2023 13:10:05 09/18/19 24 09/19/2023 UA WITH CULTU RE REFLE X nitrite, urine NEGATI VE negati ve Not Available [facility] ([facility]) [address] [place], [address], 09/19/2023 13:10:05 09/18/19 24 09/19/2023 UA WITH CULTU RE REFLE X microscopic examination COMMEN T Micro scopi c not indic ated and not perfo rmed. Not Available [facility] ([facility]) [address] [facility], [place], [address], 09/19/2023 13:10:05 09/18/19 24 09/19/2023 UA WITH CULTU RE REFLE X urinalysis reflex COMMEN T This speci men will not refle x to a Urine Cultu re. Not Available [facility] ([facility]) [address] [place], [address], 09/19/2023 13:10:05 09/18/19 24 09/19/2023 HEMOG LOBIN A1C hemoglobin A1C 6.2 % 4.8-5. 6 above high normal Predi abete s: 5.7 - 6.4 Diabe abhinav: >6.4 Glyce corona contr ol for adult s with diabe abhinav: <7.0 Not Available [facility] ([facility]) [address] [place], [address], 09/19/2023 13:10:05 02/15/20 23 02/13/2023 DEXA No observ ation record ed. [facility] [address] [place], [address], 02/18/2023 15:34:43 05/07/19 24 colon oscop y outco mes repor ting* No observ ation record ed. [email or web address] Not Available 2023 09:16:13 01/15/20 24 01/15/2024 MAMMO , scree emelia, digit al, bilat eral No observ ation record ed. [facility] [address] [place], [address], 01/19/2024 09:45:53 Result Notes None recorded. Problems Name Problem SNOMED Code Status Onset Date Resolution Date Notes Provider Name and Address Organization Details Recorded Time [facility] 506255631 Active Glenn Ogden MD Attn: Accounting ,[address] [place], [address] , [facility] 6 13:51:00 [facility] greer 49420216 Active Glenn Ogden MD Attn: Accounting ,[address] [place], [address] , [place] [facility] 6 13:51:00 Cough 47927629 Active 2017 Gwendolyn Qiu PA-C Attn: Accounting ,[address] [place], [address] , [facility] 8 13:11:30 Hypercal cemia 50288502 Completed 201808/31/2019 RAFAEL GAONA Attn: Accounting ,[address] [place], [address] , [place] [facility] 0 11:19:33 Hyperlip idemia 49898970 Active 2018 Total 254 and LDL 158 RAFAEL GAONA Attn: Accounting ,[address] [place], [address] , [place] [facility] 9 08:45:40 Impaired glucose toleranc e 8717995 Active 2018 5.8 on 12/24/18 RAFAEL GAONA Attn: Accounting ,[address] [facility], [place], [address] , [place] [facility] 9 08:45:07 SARS-CoV -2 Active 2019 tested positive for COVID-19 , being discharg ed home 0, doing well RAFAEL GAONA Attn: Accounting ,[address] [facility], [place], [address] , [place] [facility] 0 14:33:59 Endometr ium thickene d 250544864 Active 2019 Biopsy complete d, per patient - all was normal. Devan castro with OBGYN in [facility] [place] RAFAEL GAONA Attn: Accounting ,[address] [facility], [place], [address] , [facility] 0 13:48:39 Cystocel e 113074223 Active 2021 RAFAEL GAONA Attn: Accounting ,[address] [facility], [place], [address] , [facility] 2 16:32:28 Menopaus e present 013630289 Active 2021 RAFAEL GAONA Attn: Accounting ,[address] [facility], [place], [address] , [facility] 2 16:33:28 Osteopor osis 51293424 Active 2022 RAFAEL GAONA Attn: Accounting ,[address] [facility], [place], [address] , [place] [facility] 3 13:21:51 Problem Notes None recorded. Procedures Surgical History Date Name Laterality Status Provider Name and Address Organization Details Recorded Time 8 Date of Last Pap Smear completed Gwendolyn Qiu PA-C Attn: Accounting,[address] [place], [address], [place] [facility] 05/14/2017 10:43:10 1 Most Recent Mammogram completed Amy Michaels MA [place] - [facility] 11/09/2014 11:23:20 Imaging Results None recorded. Procedure Notes None recorded. Medical Equipment None Reported. Allergies No known drug allergies Medications Name Sig Start Date Stop Date Status Note LastModified by Organization Details LastModified Time lisinop/h ctz tab 20-12.5 08/30 completed Not Available Not Available Not Available atorvasta tin calcium 40 mg tabs 08/30 completed Not Available Not Available Not Available atorvasta tin 40 mg tablet one tab po q d active Not Available Not Available No t Available lisinopri l 20 mg-hydroc hlorothia zide 12.5 mg tablet TAKE 1 TABLET BY MOUTH EVERY DAY 01/30 completed Urinary freq. Not Available Not Available Not Available ibuprofen 800 mg tablet TAKE ONE TABLET BY MOUTH TWICE DAILY WITH MEALS FOR FOURTEEN DAYS 01/30 completed Not Available Not Available Not Available alendrona te 70 mg tablet Take 1 tablet every week by oral route in the morning for 28 days. 09/03 completed Not Available Not Available Not Available sulfameth oxazole 800 mg-trimet hoprim 160 mg tablet Take 1 tablet every 12 hours by oral route with meals for 5 days. 09/03 completed Not Available Not Available Not Available ondansetr on 8 mg disintegr ating tablet Place 1 tablet every 8 hours by translin gual route as needed for 7 days. 01/11 completed Not Available Not Available Not Available cyprohept adine 4 mg tablet Take 1 tablet every day by oral route at bedtime for 30 days. 05/14 completed Not Available Not Available Not Available phenazopy ridine 100 mg tablet 02/03 completed Not Available Not Available Not Available promethaz ine 25 mg tablet 08/30 completed Not Available Not Available Not Available albuterol sulfate HFA 90 mcg/actua tion aerosol inhaler INHALE 2 PUFFS BY MOUTH 20 MINUTES BEFORE WORK active Not Available Not Available No t Available lisinopri l 40 mg tablet one tab po q d active Not Available Not Available No t Available amoxicill in 875 mg-potass ium clavulana te 125 mg tablet Take 1 tablet every 12 hours by oral route as directed for 7 days. 04/15 completed Not Available Not Available Not Available cyclobenz aprine 5 mg tablet TAKE 1 TABLET BY MOUTH EVERY DAY AT BEDTIME FOR 14 DAYS 01/30 completed Not Available Not Available Not Available nitrofura ntoin monohydra te/macroc rystals 100 mg capsule 07/14 completed Not Available Not Available Not Available calcium 600 mg (as carbonate )-vitamin D3 10 mcg (400 unit) tablet TAKE 1 TABLET BY MOUTH TWICE A DAY 2024 active Not Available Not Available Not Avai lable Vitals Date Recorded Systolic And Diastolic Provider Name and Address Organization Details Last Updated DateTime 06/27/2022 120/80 mm[Hg] RAFAEL GAONA Attn: Accounting,[address] [facility], [place], [address], [facility] 06/27/2022 13:57:29 Date Recorded Body height Body mass index (BMI) Body weight Heart rate Body temperature Oxygen saturation Oxygen saturation in Arterial blood by Pulse oximetry Systolic And Diastolic Provider Name and Address Organization Details Last Updated DateTime 3 154.94 cm 22.5 kg/m2 21207.8 9 g 93 /min 98.8 [degF] 98 % 98 % 100/70 mm[Hg] Melissa Smalls MA [facility] 3 12:06:45 Date Recorded Body height Body mass index (BMI) Body weight Oxygen saturation Oxygen saturation in Arterial blood by Pulse oximetry Heart rate Systolic And Diastolic Provider Name and Address Organization Details Last Updated DateTime 4 154.94 cm 22.7 kg/m2 36795.0 8 g 99 % 99 % 98 /min 122/80 mm[Hg] Andra Stiles MA [facility] 4 11:41:21 Date Recorded Body height Body mass index (BMI) Body weight Oxygen saturation Oxygen saturation in Arterial blood by Pulse oximetry Heart rate Respiratory rate Systolic And Diastolic Provider Name and Address Organization Details Last Updated DateTime 4 154.94 cm 22.3 kg/m2 14677.9 g 99 % 99 % 86 /min 18 /min 118/78 mm[Hg] Andra Stiles MA [facility] 4 11:57:13 Date Recorded Body height Body mass index (BMI) Body weight Body temperature Oxygen saturation Oxygen saturation in Arterial blood by Pulse oximetry Heart rate Systolic And Diastolic Provider Name and Address Organization Details Last Updated DateTime 3 154.94 cm 23.8 kg/m2 95375.9 2 g 98.4 [degF] 97 % 97 % 104 /min 120/72 mm[Hg] Anitadavey Yost MA [place] - [facility] 3 12:07:42 Social History Question Answer Notes LastModified by Organizat ion Details LastModified Time Tobacco Smoking Status Never Smoker [place], [place] - [facility] 04/19/2014 10:50:39 Do You Have An Advance Directive? No Information n ot available 11/09/2014 Is Blood Transfusion Acceptable In An Emergency? Yes Information not available 11/09/2014 What Is Your Level Of Caffeine Consumption? Moderate Information not available 04/19/2014 How Much Tobacco Do You Chew? None Information not available 11/09/2014 In The 14 Days Before Symptom Onset, Have You Had Close Contact With A Laboratory-confirm ed COVID-19 While That Case Was Ill? No Information n ot available 12/27/2021 In The 14 Days Before Symptom Onset, Have You Had Close Contact With A Person Who Is Under Investigation For COVID-19 While That Person Was Ill? No Information not available 12/27/2021 Have You Been To An Area Known To Be High Risk For COVID-19? No Information not available 12/27/2021 What Type Of Diet Are You Following? REGULAR Information n ot available 11/09/2014 Education 11 Information no t available 11/09/2014 Live Alone Or With Others? With Others Information not available 11/09/2014 What Was The Date Of Your Most Recent Tobacco Screening? 09/18/2023 Information not available 09/18/2023 How Many Children Do You Have? 3 Information not available 11/09/2014 Performs Monthly Self-breast Exam? Yes Information no t available 11/09/2014 Do You Use Protection During Sex? No Information not available 11/09/2014 What Is Your Relationship Status? Information not available 11/09/2014 Seat Belts Used Routinely Yes Information not available 11/09/2014 Are You Sexually Active? No Information not available 11/09/2014 Do You Have Smoke And Carbon Monoxide Detectors In Your Home? Yes Information not available 12/27/2021 Are You Passively Exposed To Smoke? No Information no t available 12/27/2021 How Much Tobacco Do You Smoke? No Information not available 08/31/2019 General Stress Level Medium Information not available 11/09/2014 Do You Use Sunscreen Routinely? No Information not available 11/09/2014 Has Tobacco Cessation Counseling Been Provided? No Information not available 12/27/2021 On What Date Was Tobacco Cessation Counseling Provided? 09/18/2023 Information not available 09/18/2023 Sex: Female Functional Status Question Answer Note LastModified by Organizat ion Details LastModified Time Do you use any illicit or recreational drugs? No Information not available 12/27/2021 What is your level of alcohol consumption? None Information not available 04/19/2014 Do you or have you ever used smokeless tobacco? Never used smokeless tobacco Information not available 08/31/2019 Are you currently employed? 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 Never used electronic cigarettes Information not available 08/31/2019 What is your exercise level? Moderate Information not available 11/09/2014 Mental Status None recorded. Family History Relationship Description Onset Age of this Age Resolved Age Notes LastModified by Organization Details LastModified Time Father No current problems or disability [email or web address] Not available 06/19 11:27:38 Mother No current problems or disability [email or web address] Not available 06/19 11:27:38 Medical History Condition Response Coronary Artery Disease N Kidney Cyst N Blood Diseases N Hyperthyroidism N Blood disorders N Blood Transfusion N MRSA N Emphysema N Blood Clots N COPD N Depression N Pneumonia N Premature N Peripheral Arterial Disease N Edema N TIA N Headaches/Migraines N Anxiety Disorder N Obesity N Infertility N Polyps N Acid Reflux (GERD) N Hematuria N Stroke N Neck Injury N Polio N Hospital Admission other than N Neurologic Disorder N Other Sleep Disorders N Rheumatoid Arthritis N Fibromyalgia N Abdominal Aortic Aneurysm Repair N Kidney Disease N Heart Conditions N Heart Disease/Heart Problems N Hospitalizations N Brain Tumors N Acne N Eating Disorder N Skin Problems N Constipation N Meningitis N Tuberculosis N Cerebral Palsy N Myocardial Infarction N Asthma N Substance Abuse N Peripheral Vascular Disease N Vertigo N Sleep Disorder N Cirrhosis N Pulmonary Embolism N Chicken Pox N Flomax Use Past or Present N Hematologic Disease N Anxiety/Depression N Thyroid Disease N Colon Cancer N Glaucoma N Lung Disease N Developmental or Behavioral Disorders N Bipolar N Pacemaker N Diverticulitis/Diverticulosis N Anesthesia Complications N Orthopedic Problems N Orthotics N Head Injury/Concussion N Congenital Anomalies N Randhawa Bite N Chronic Kidney Disease N Endometriosis N Liver Disease N Dialysis N Schizophrenia N Speech Delay N Chronic Obstructive Pulmonary Disease N Parkinson's Disease N Thyroid Problems N Developmental Delay N GI Problems N Anemia N Immune System Disorder N Multiple Sclerosis N Colon Polyps N Heart Attack ([place]) N Diabetes N Cardiomyopathy N Blood Transfusions N Heart Problems/Murmur N Eye Trauma N Congestive Heart Failure (CHF) N Valvular Heart Disease N Hyperlipidemia N Double Vision N Abuse/Domestic Violence N Hepatitis B N Lupus N Epilepsy/Seizures N Reflux/GERD N Aneurysm N Bronchitis N Heart Disease N Hypertension N Pre-Eclampsia N Heart Failure N Other N Gout N High Blood Pressure N Atrial Fibrillation N Kidney Stones N Head Trauma/Injury N Congenital Heart Disease N Spine Problems N Gastrointestinal Disease N Lung Mass N Sinusitis N Obstructive Sleep Apnea N Muscle, Joint, or Bone Problems N Autoimmune disease N Vision or Eye Problems N Arthritis N Blood Clot N Cancer N Seasonal allergies N Leg or Foot Ulcers N Raynaud's Disease N Aortic Aneurysm N Arrhythmia N Headaches N Heart Problems N Ambloypia N Ear or Hearing Problems N Hyperparathyroidism N Migraines N Artificial Joints N Kidney or Bladder Problems N NSAID Use N Encephalitis N PTSD N Ulcers N Prostate Hypertrophy N Bleeding Disorder N AIDS/HIV N Urinary Tract Infection N Back Problems N Allergies N Atrial Flutter N GERD/Reflux N Hepatitis N Autism Spectrum Disorder (ASD) N Breast Cancer N Hernia N Hypothyroidism N Breast Problem N Genitourinary Disease N Deep Vein Thrombosis N Varicose Veins N Cystic Fibrosis N Hearing Loss N Developmental Problems N Carotid Disease N Vitamin D Deficiency N ADHD N Bladder or Kidney Problems N High Cholesterol N [place] N Valvular Abnormalities N Psychiatric/Mental Health Condition N Organ Transplant N Foot Deformity N Allergies/Hayfever N Dyslipidemia N Hyponatremia N Diabetic Eye Disease N Osteoporosis/Osteopenia N Back Pain N Proteinuria N Mental Illness N Neurological Problems N Ovarian Cancer N Bedwetting N Seizures/Epilepsy N Kidney Failure N Ocular trauma N Diverticulitis N Dementia N Sleep Apnea N Mental Problems N Warfarin Management N Osteoporosis N Gynecological History Statement/Question Response Abnormal Pap N STIs/STDs N HPV Vaccine N Most Recent Mammogram 10/31/2010 Current Control Method Menopause Age at First Child 19 If Post Menopausal, Age at Menopause 57 Sexually Active? N Menses Monthly N Date of Last Pap Smear 05/14/2017 Sexual Problems? N Desired Control Method None Obstetrics History GPAL:G 3 P 3 0 0 3 Type Value Multiple Births 0 Full Term 3 Induced 0 Spontaneous 0 Premature 0 Living 3 Ectopics 0 Total 3 Immunizations Vaccine Type Date Status Note Provider Nam e and Address Organization Details Recorded Time SARS-COV-2 (COVID-19) vaccine, UNSPECIFIED 1 completed RAFAEL GAONA Attn: Accounting,[address] [place], [address], [facility] 06/19/2020 12:01:11 SARS-COV-2 (COVID-19) vaccine, UNSPECIFIED 1 completed RAFAEL GAONA Attn: Accounting,[address] [place], [address], [facility] 06/19/2020 12:01:22 Influenza, split virus, quadrivalent, preservative 3 completed Melissa Smalls MA null, [place] [facility] 04/24/2022 12:36:58 Influenza, high-dose, quadrivalent, PF 3 completed RAFAEL GAONA Attn: Accounting,[address] [place], [address], [facility] 01/30/2023 13:41:12 Past Encounters Encounter ID Performer Location Encounter Start Date Encounter Closed Date Diagnosis/Indication Diagnosis SNOMED-CT Code Diagnosis ICD10 Code Diagnosis Note [id number] [facility] [address] [place] [address] 04/19/2014 10:31:06 04/19/2014 11:46:52 Essential hypertension 25400461 [id number] MD Heidi Huntley (Adult Med) [address] [place] [address] 11/06/2014 11:50:16 11/06/2014 12:48:20 Essential hypertension 01741754 Screening for malignant neoplasm of colon 532998467 [facility] [id number] MD Heidi Powell (RX SPECIALIST) [address] [place] [address] 11/09/2014 10:56:33 11/09/2014 12:02:20 Screening mammography 49851488 [id number] MD Heidi Huntley (Adult Med) [address] [place] [address] 06/20/2015 12:24:12 06/20/2015 13:55:05 Essential hypertension 74335935 I10 [facility] [id number] 3.6 [id number] MD Heidi Huntley (Adult Med) [address] [place] [address] 02/07/2016 12:11:01 02/07/2016 15:44:06 Hypertensive disorder 12060669 I10 [id number] MD Heidi Monroy (Adult Med) [address] [place] [address] 05/14/2017 09:33:10 05/14/2017 10:44:55 Gynecologic examination 71952017 Z01.419 Screening for malignant neoplasm of breast 307959829 Z12.31 Screening for malignant neoplasm of colon 292903818 Z12.11 [id number] MD Heidi Monroy (Adult Med) [address] [place] [address] 07/21/2017 11:51:24 07/21/2017 12:27:00 Adult health examination 001153887 Z00.01 Essential hypertension 98138535 I10 118/70 - NAD, WNL Discussed DASH diet Advised 30 minutes of exercise minimum dailyAdvis ed tobacco, alcohol, caffeine all increase BPAdvised goal for BP is <140/90 [id number] MD Heidi Monroy (Adult Med) [address] [place] [address] 02/03/2018 12:14:47 02/04/2018 10:43:16 Essential hypertension 49762691 I10 124/76 - NAD, WNL The patient's hypertensi on is currently well controlled on the current medication regimen. She will also have a lipid panel, albumin/cr eatinine ratio, and CMP drawn for her yearly labs. She is scheduled to return in 6mo or sooner if she has a problem. Discussed DASH diet Advised 30 minutes of exercise minimum dailyAdvis ed goal for BP is <140/90 Screening for malignant neoplasm of colon 714657945 Z12.11 Cough 82679244 R05 Patient complains of a dry cough x 1 month and wonders if it is due to the MINDY she has been on for multiple years. She has a history of allergies and usually takes claritin but has not been taking it. She will trial Claritin to see if it is controlled before changing her blood pressure medication . [id number] RAFAEL GAONA (Adult Med) [address] [place] [address] 12/24/2018 10:25:58 12/27/2018 09:32:32 Essential hypertension 87671468 I10 BP Today: 112/70c/w lisinopril 20 mg-hctz 12.5 mg Discussed DASH diet Advised 30 minutes of exercise minimum daily Advised tobacco, alcohol, caffeine all increase BP Advised goal for BP is <140/90 Contact office if BP is > 140/90 consistent ly DIscussed consequenc es of HTN including kidney, eye, heart damage, stroke, and even RTC 6 months for BP check Hypercalcemia 59444021 E 83.52 CMP on 02/03/18 showed a Ca level of 10.6- Will recheck and look at PTH Hyperlipidemia 45357173 E78.5 Did not make a follow-up appointmen t for cholestero l medication so has been out the last couple months- Will check lipid level, if still elevated, will restart her atorvastat in Adult [facility] examination 832386393 Z00.00 PHQ 05/08 was negative in office today (2 out of 27) Screening for malignant neoplasm of colon 530908185 Z12.11 No prior colonoscop yRequjazmyne g to have this done at [facility] Screening for malignant neoplasm of breast 663527669 Z12.31 Mammogram on 07/16/17 was normal- Provided patient with mammogram order, she is to call and schedule herself Infection of tooth 12662 8007 K04.7 Complainin g of tooth pain and difficulty eating solid foodsAdmit s she has a dentist appointmen t coming up next weekOn PE: On top jaw above left central incisor erythemato us/swollen /TTP- Will start her on Augmentin x 7 days to cover her until she is seen by dentist [id number] RAFAEL GAONA (Adult Med) [address] [place] [address] 07/08/2019 10:16:59 07/08/2019 14:43:15 Acute urinary tract infection 295961505 N39.0 She went to [facility] on 07/08/19 for urinary frequency, low grade fever, and nausea.She was diagnosed with UTI and discharged home with macrobid x 5 days and anti-nause a medication .Today she is feeling much better, no longer experienci ng urinary symptoms and admits to mild nausea. Essential hypertension [id number] I10 BP Today: unable to check todayc/w lisinopril 20 mg-hctz 12.5 mg Discussed DASH diet Advised 30 minutes of exercise minimum daily Advised tobacco, alcohol, caffeine all increase BP Advised goal for BP is <140/90 Contact office if BP is > 140/90 consistent ly DIscussed consequenc es of HTN including kidney, eye, heart damage, stroke, and even - RTC 6 months for BP check Hyperlipidemia 23225523 E78.5 Encouraged her to take this medication on a regular basis- c/w atorvastat in 40 mg qd [id number] RAFAEL GAONA (Adult Med) [address] [place] [address] 07/15/2019 09:56:33 07/21/2019 15:49:23 SARS-CoV-2 [id number] U07.1 She went to [facility] ER on 07/10/2019 with fever of 102, nausea, and weakness.S he tested positive for COVID-19.S he was in hospital until 07/13/2019, did well in the hospital and was discharged home with no medication . Today on the phone, patient states she is doing well, no fevers since prior to discharge and overall asymptomat ic.- discussed staying home for a total of 14 day quarantine - Health department is providing her informatio n to give to her workplace- continue with supportive care- call office if develops symptoms Endometrium thickened 44 [id number] R93.89 PA from [facility] and found a thickened endometriu m on a CT scan- patient is scheduled to see OBGYN in [place] on 08/04/2019 for further work-up [id number] [facility] [place] [address] 08/31/2019 09:46:50 09/01/2019 15:10:09 Essential hypertension 23154601 I10 BP Today: unable to check today since phone visitc/w lisinopril 20 mg-hctz 12.5 mg Discussed DASH diet Advised 30 minutes of exercise minimum daily Advised tobacco, alcohol, caffeine all increase BP Advised goal for BP is <140/90 Contact office if BP is > 140/90 consistent ly DIscussed consequenc es of HTN including kidney, eye, heart damage, stroke, and even - continue with medication , does not need refills today- RTC 4 months for BP check Hyperlipidemia 36319166 E78.5 Labs 12/24/18: Total 254 and LDL 158 (not on medication - currently taking atorvastat in 40 mg qd now, does not need refills today Adult heal th examination 075378639 Z00.00 PHQ 05/08 was negative at last visit (2 out of 27)Repeat labs due 11/2019 Screening for malignant neoplasm of colon 709420104 Z12.11 No prior colonoscop y completedR eferral placed at last visit but since patient has been dealing with testing + for COVID and now seeing OBGYN for thickened endometriu m- will let her complete OBGYN procedure and work-up now, once that is completed, will get her in touch with GI for colonoscop y Screening for malignant neoplasm of breast 790347294 Z12.31 Mammogram on 07/16/17 was normalMamm ogram on 01/18/19 was normal - will continue with mammogram screenings Endometrium thickened 44 5210020 R93.89 During hospitaliz ation, imaging was obtained and found a thickened endometriu m on a CT scan Following with OBGYN in [place], a endometria l biopsy was completed but results showed insufficie nt tissuePati ent asking if she can be sexually active during this time- plan is now for her to have a hysterosco py completed, no set date yet- states she needs COVID testing before, told her she can have it completed here if needed- advised her it is okay to continue to be sexually active currently, discuss with OBGYN about intercours e after procedure Nausea [id number] R11.0 Complains of intermitte nt nausea, requesting medication for when this occurs- will send zofran, take PRN for nausea [id number] RAFAEL GAONA (Adult Med) [address] [place] [address] 01/20/2020 08:14:52 01/23/2020 08:48:44 Essential hypertension 32677640 I10 BP Today: unable to check today since phone visitc/w lisinopril 20 mg-hctz 12.5 mg Discussed DASH diet Advised 30 minutes of exercise minimum daily Advised tobacco, alcohol, caffeine all increase BP Advised goal for BP is <140/90 Contact office if BP is > 140/90 consistent ly DIscussed consequenc es of HTN including kidney, eye, heart damage, stroke, and even - RTC in 6 months Hyperlipidemia 65780287 E78.5 Labs 12/24/18: Total 254 and LDL 158 (not on medication )Now taking atorvastat in 40 mg dailyDue for repeat labs- plans to come to office for repeat labs Screening for malignant neoplasm of colon 508481892 Z12.11 No prior colonoscop y completedH as not seen GI yet- will place another referral to GI Screening for malignant neoplasm of breast 706884133 Z12.31 Mammogram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
[2024-10-17 03:03] VITALS: BP 112/82; PULSE 108; RESP 16; TEMP 36.7; O2SAT 100
[2024-10-17 03:33] VITALS: BP 154/108; PULSE 114; RESP 18; TEMP 36.2; O2SAT 100
[2024-10-17 04:13] LABS: Hematocrit 36.8 % (37.0-47.0); Hemoglobin 12.3 g/dL (12.0-15.0); Immature Granulocyte Percent A 0.3 % (0-0.5); Immature Platelet Fraction Pct 11.3 % (0.9-11.2); Lymphocytes Absolute Auto 0.87 K/mm3 (0.9-3.2); Mean Corpuscular HGB Conc 33.4 g/dl (32-36); Mean Corpuscular Hemoglobin 30.7 pg (26-34); Mean Corpuscular Volume 91.8 fl (80-100); Nucleated Red Blood Cells Absolute Auto 0.000 K/mm3 (0.0-0.012); Nucleated Red Blood Cells Perc 0.0 % (0.0-0.2); Platelet Count Result 147 k/mm3 (150-375); Red Blood Count 4.01 M/mm3 (4.2-5.4); White Blood Count 11.3 K/mm3 (4.5-10.0)
[2024-10-17] MEDS: LACTATED RINGERS 1,000 ML 999 ML IV CONT (04:30)
[2024-10-17] MEDS: ONDANSETRON INJ 4 MG/2 ML VIAL IV PUSH (04:31)
[2024-10-17] MEDS: PROCHLORPERAZINE EDISYLATE 10 MG/2 ML VIAL IV PUSH (04:59)
[2024-10-17 05:02] LABS: Alanine Aminotransferase 24 U/L (6-35); Albumin Level 4.4 g/dL (3.5-5.1); Alkaline Phosphatase 103 U/L (38-126); Anion Gap 11 mmol/L (4-12); Aspartate Amino Transferase 33 U/L (14-36); Bilirubin,Total 1.2 mg/dL (0.2-1.3); Blood Urea Nitrogen 16 mg/dL (7-17); Calcium 10.3 mg/dL (8.4-10.2); Carbon Dioxide 20 mmol/L (22-30); Chloride 107 mmol/L (98-107); Estimated CRCL calculation 42 ml/min; Estimated Glomerular Filt Rate > 60; Glucose 148 mg/dL (65-110); Glucose Urine UA Negative (Negative); Lipase 202 U/L (23-300); Potassium 3.8 mmol/L (3.4-5.0); Sodium 138 mmol/L (137-145); Total Protein 7.7 g/dL (6.3-8.2)
[2024-10-17 05:03] LABS: Add Urine Microscopic? YES; Leukocyte Esterase Ur Trace LEU/UL (Negative)
[2024-10-17 05:04] LABS: Appearance Urine Clear (Clear); Specific Grav Ur 1.010 (1.001-1.035)
[2024-10-17 05:05] LABS: Nitrate Urine Negative (Negative)
--- NOTE | 2024-10-17 05:05 | ED.NAVMDI ---
HPI - Nausea/Vomiting/Diarrhea General Chief complaint: Nausea/Vomiting/Diarrhea Stated complaint: peeing alot, nausea Time Seen by Provider: 10/17/24 03:40 History of Present Illness HPI Narrative: 68-year-old female with a past medical history including hypertension presenting to the emergency depart with nauseousness and dysuria as well as some hematuria that onset this afternoon while she was at work. She states she vomited 1 time. Denies any abdominal pain or back pain. History of UTIs in the past. No kidney stones or flank pain. She is uncomfortable in asking for something for nausea. Denies any pain. Was otherwise in her normal state of health yesterday. No frequency or urgency. No fever, chills, chest pain, shortness of breath. Related Data Home Medications ?Medication ?Instructions ?Recorded ?Confirmed ?Last Taken ?Type atorvastatin 10 mg tablet 40 mg PO HS 07/11/19 05/01/23 04/30/23 History lisinopril 5 mg tablet 25 mg PO DAILY 09/12/19 05/01/23 04/30/23 History Allergies Allergy/AdvReac Type Severity Reaction Status Date / Time No Known Allergies Allergy Verified 05/01/23 07:26 Review of Systems Review of Systems: As reviewed above in HPI COUNT INCLUDES THE [facility] Past Medical History Medical History (Updated 10/17/24 @ 06:38 by Mukul Nicholson MD) UTI (urinary tract infection) Post-menopausal Seasonal allergies HTN (hypertension) Surgical History Surgical History No pertinent past surgical history Family History Family History Father Diabetes mellitus Social History Social History Smoking status: Never smoker Alcohol intake: unknown Substance use: never Substance use type: does not use Living arrangements: with family Occupation/Education: occupation 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 Mucous membranes moist. NECK: Supple. CHEST: [Clear to auscultation. No respiratory distress.] HEART: [Regular rate and rhythm]. No murmur heard. [Normal peripheral pulses.] ABDOMEN: [Soft, nondistended], [nontender], [No rigidity or guarding] EXTREMITIES: Normal range of motion. [No edema.] SKIN: Warm, dry, no rash. NEURO: [No focal deficits]. Alert and oriented [x3.] PSYCH: [Normal mood and affect.] Course Vital Signs Vital signs: Vital Signs Temperature 36.7 C 10/17/24 03:03 Pulse Rate 108 H 10/17/24 03:03 Respiratory Rate 16 10/17/24 03:03 Blood Pressure 112/82 10/17/24 03:03 Pulse Oximetry 100 10/17/24 03:03 Temperature 36.2 C L 10/17/24 03:33 Pulse Rate 114 H 10/17/24 03:33 Respiratory Rate 18 10/17/24 03:33 Blood Pressure 154/108 H 10/17/24 03:33 Pulse Oximetry 100 10/17/24 03:33 Oxygen Delivery Room Air 10/17/24 03:33 MDM - Nausea/Vomiting/Diarrhea MDM Narrative Medical decision making narrative: 68-year-old female with a past medical history including hypertension presenting to the emergency depart with nauseousness and dysuria as well as some hematuria that onset this afternoon while she was at work. She states she vomited 1 time. Denies any abdominal pain or back pain. History of UTIs in the past. No kidney stones or flank pain. She is uncomfortable in asking for something for nausea. Denies any pain. Was otherwise in her normal state of health yesterday. No frequency or urgency. No fever, chills, chest pain, shortness of breath. Patient is complaining of urinary symptoms as well as some nauseousness and 1 episode of vomiting. She is mildly tachycardic but afebrile, no significant blood pressure concerns. 100% on room air. Differential includes dysuria from cystitis, urinary tract infection, pyelonephritis less likely. No abdominal pain that makes me suspicious for kidney stones or intra-abdominal infectious pathology at this time. Urinalysis and basic laboratory studies were obtained and she was given Zofran. Initial round Zofran mildly improved her symptoms. She was given fluids, Compazine and diphenhydramine. Workup shows unremarkable electrolytes, normal creatinine, normal LFTs. Normal lipase. Minor leukocytosis 11.3, no anemia. Normal platelet count. Urinalysis shows some blood and white blood cells as well as leukocyte esterase. Patient had significant improvement after the Compazine and diphenhydramine. She was started on Bactrim for urinary tract infection and felt comfortable going home with antibiotics and antiemetics. Patient is safe for discharge home after fluids and patient heart rate did come down with hydration. Medical Records Attestation: I reviewed the patient's medical records. Lab Data Attestation: I reviewed the patient's lab results. 10/17/24 04:00 10/17/24 04:37 Labs: Lab Results 10/17/24 10/17/24 Range/Units 04:00 04:37 WBC 11.3 H (4.5-10.0) K/mm3 RBC 4.01 L (4.2-5.4) M/mm3 Hgb 12.3 (12.0-15.0) g/dL Hct 36.8 L (37.0-47.0) % MCV 91.8 (80-100) fl MCH 30.7 (26-34) pg MCHC 33.4 (32-36) g/dl RDW 12.5 (11.5-14.5) % Plt Count 147 L (150-375) k/mm3 MPV 12.1 H (7.4-10.4) fl Immature Gran % (Auto) 0.3 (0-0.5) % Neut % (Auto) 86.1 H (45.5-73.1) % Lymph % (Auto) 7.7 L (18.3-44.2) % [place] % (Auto) 5.3 (2.6-8.5) % Eos % (Auto) 0.4 (0-4.4) % Baso % (Auto) 0.2 (0.2-1.2) % Lymph # (Auto) 0.87 L (0.9-3.2) K/mm3 [place] # (Auto) 0.6 (0.1-0.6) K/mm3 Eos # (Auto) 0.1 (0-0.3) K/mm3 Baso # (Auto) 0.0 (0.0-0.1) K/mm3 Abs Immat Gran (auto) 0.03 (0.00-0.031) K/mm3 Absolute Neuts (auto) 9.8 H (1.3-6.7) K/mm3 Absolute Nucleated RBC 0.000 (0.0-0.012) K/mm3 Nucleated RBC % 0.0 (0.0-0.2) % % Immature Plt Fraction 11.3 H (0.9-11.2) % Sodium 138 (137-145) mmol/L Potassium 3.8 (3.4-5.0) mmol/L Chloride 107 (98-107) mmol/L Carbon Dioxide 20 L (22-30) mmol/L Anion Gap 11 (4-12) mmol/L BUN 16 (7-17) mg/dL Creatinine 0.87 (0.7-1.0) mg/dL Estim Creat Clear Calc 42 ml/min Estimated GFR > 60 (59 - ) Glucose 148 H (65-110) mg/dL Calcium 10.3 H (8.4-10.2) mg/dL Total Bilirubin 1.2 (0.2-1.3) mg/dL AST 33 (14-36) U/L ALT 24 (6-35) U/L Alkaline Phosphatase 103 (38-126) U/L Total Protein 7.7 (6.3-8.2) g/dL Albumin 4.4 (3.5-5.1) g/dL Lipase 202 (23-300) U/L Urine Color Light red H (Yellow) Urine Appearance Clear (Clear) Urine pH 7.5 (5.0-9.0) Ur Specific [place] 1.010 (1.001-1.035) Urine Protein Negative (Negative) mg/dL Urine Glucose (UA) Negative (Negative) mg/dL Urine Ketones Negative (Negative) mg/dL Ur Blood (Man) 2+ H (Negative) Urine Nitrate Negative (Negative) Urine Bilirubin Negative (Negative) Urine Urobilinogen 0.2 (<2.0) mg/dL Leukocyte Esterase Rfl Trace H (Negative) JAZMYN/UL Urine RBC 21-50 H (0-2) /hpf Urine WBC 6-10 H (0-3) /hpf Ur Squamous Epith Cells Rare (Few) /hpf Discharge Plan Discharge Clinical Impression: Acute UTI, Nausea & vomiting Patient Disposition: Home Condition: Stable Instructions: Antibiotic Form, Acute Nausea and Vomiting (ED), Urinary Tract Infection in Older Adults (ED) Additional Instructions: It seems like your urine has a urinary tract infection which is likely the cause of your urinary symptoms and mild nauseousness. We will treat this with antibiotics and give you some medications to help control nausea at home. Follow-up with your regular primary care provider. Return with any emergent concerns such as inability to tolerate oral intake, developing fevers, developing abdominal pain or flank pain or worsening symptoms. 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
[2024-10-17] MEDS: SULFAMETHOXAZOLE/TRIMETHOPRIM 800/160 MG DS TABLET 1 TAB PO (06:54)
== END 2024-10-17 06:55 | disposition home or self-care (01) ==
PROVIDERS: Emergency Provider Student in an Organized Health Care Education/Training Program
DX: N39.0 Urinary tract infection, site not specified (principal); R11.2 Nausea with vomiting, unspecified; I10 Essential (primary) hypertension; Z87.440 Personal history of urinary (tract) infections
CPT/HCPCS: 36415; 80053; 81001; 81025; 83690; 85025; 85055; 87086; 96374; 96375; 99284; A9270; J0780; J1200; J2405; J7120

== ENCOUNTER 2025-02-17 09:36 | Emergency (ER) | payer MEDICARE, SELFPAY ==
[2025-02-17 09:38] VITALS: BP 155/113; PULSE 100; RESP 20; O2SAT 100
[2025-02-17] MEDS: SODIUM CHLORIDE 0.9% IV 1,000 ML 999 ML IV CONT (09:54)
[2025-02-17] MEDS: ONDANSETRON INJ 4 MG/2 ML VIAL IV PUSH ×2 (09:54→11:51)
[2025-02-17 10:08] LABS: Hematocrit 39.3 % (37.0-47.0); Hemoglobin 13.4 g/dL (12.0-15.0); Immature Granulocyte Percent A 0.2 % (0-0.5); Lymphocytes Absolute Auto 1.39 K/mm3 (0.9-3.2); Mean Corpuscular HGB Conc 34.1 g/dl (32-36); Mean Corpuscular Hemoglobin 30.5 pg (26-34); Mean Corpuscular Volume 89.5 fl (80-100); Nucleated Red Blood Cells Absolute Auto 0.000 K/mm3 (0.0-0.012); Nucleated Red Blood Cells Perc 0.0 % (0.0-0.2); Platelet Count Result 170 k/mm3 (150-375); Red Blood Count 4.39 M/mm3 (4.2-5.4); White Blood Count 5.1 K/mm3 (4.5-10.0)
[2025-02-17] MEDS: MECLIZINE HCL 25 MG TABLET PO (10:08)
[2025-02-17] MEDS: PROMETHAZINE HCL 25 MG/ML AMPUL 12.5 MG IV PUSH (10:17)
[2025-02-17 10:19] LABS: Alanine Aminotransferase 28 U/L (6-35); Albumin Level 4.8 g/dL (3.5-5.1); Alkaline Phosphatase 103 U/L (38-126); Anion Gap 14 mmol/L (4-12); Aspartate Amino Transferase 35 U/L (14-36); Bilirubin,Total 1.0 mg/dL (0.2-1.3); Blood Urea Nitrogen 15 mg/dL (7-17); Calcium 9.9 mg/dL (8.4-10.2); Carbon Dioxide 17 mmol/L (22-30); Chloride 107 mmol/L (98-107); Estimated CRCL calculation 48 ml/min; Estimated Glomerular Filt Rate > 60; Glucose 204 mg/dL (65-110); Lipase 180 U/L (23-300); Potassium 3.5 mmol/L (3.4-5.0); Sodium 138 mmol/L (137-145); Total Protein 8.3 g/dL (6.3-8.2)
--- NOTE | 2025-02-17 10:43 | ED_ITS ---
HPI - Nausea/Vomiting/Diarrhea General Chief complaint: Nausea/Vomiting/Diarrhea Stated complaint: N/V Time Seen by Provider: 02/17/25 09:41 History of Present Illness HPI Narrative: Patient is a 69-year-old female who presents ER with nausea vomiting. She woke up this morning and then began to feel hot and flushed and developed dizziness which was then followed by vomiting. No numbness or weakness in arm or leg. She has not fallen, no ringing in the ear loss or loss of hearing Related Data Home Medications ?Medication ?Instructions ?Recorded ?Confirmed ?Last Taken ?Type atorvastatin 10 mg tablet 40 mg PO HS 07/11/19 4 04/30/23 History lisinopril 5 mg tablet 25 mg PO DAILY 09/12/1905/2304/30/23 History Allergies Allergy/AdvReac Type Severity Reaction Status Date / Time No Known Allergies Allergy Verified 05/01/23 07:26 Review of Systems 2 Review of Systems: All systems reviewed & are unremarkable except as noted in HPI and below Constitutional: Constitutional: Reports no additional constitutional complaints ENT: Reports system reviewed and no additional complaints, except as documented Cardiovascular: Cardiovascular: Reports no additional cardiovascular complaints Respiratory: Respiratory: Reports no additional respiratory complaints Gastrointestinal: Gastrointestinal: Reports no additional gastrointestinal complaints PMFSH Past Medical History Medical History (Updated 02/17/25 @ 13:49 by Jose Eduardo Seo MD) UTI (urinary tract infection) Post-menopausal Seasonal allergies HTN (hypertension) Surgical History Surgical History No pertinent past surgical history Family History Family History Father Diabetes mellitus Social History Social History Smoking status: Never smoker Alcohol intake: unknown Substance use: never Substance use type: does not use Living arrangements: with family Occupation/Education: occupation 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 HEAD: Normocephalic, atraumatic. EYES: PERRL and EOMI. ENT: Mucous membranes moist. Normal left TM. Cerumen impaction right ear canal, after irrigation and curette TM identified and not perforated but is erythematous due to working on the area. No ear pain. NECK: Supple. CHEST: Clear to auscultation. No respiratory distress. HEART: Regular rate and rhythm. Normal peripheral pulses. ABDOMEN: Soft, nontender, nondistended. EXTREMITIES: Normal range of motion. No edema. SKIN: Warm, dry, no rash. NEURO: Alert and oriented x3. PSYCH: Normal mood and affect. Course Course Emergency Course: Patient with multiple doses of antinausea medicine. No emesis here. Able tolerate GI cocktail and oral liquids. Up and ambulatory without issue. Ear irrigated and cerumen removed. Appropriate for discharge home. Discussed elevated glucose level as patient is not known to be diabetic and recommend follow-up with PCP for further evaluation. Patient family verbalized understanding. Vital Signs Vital signs: Vital Signs Pulse Rate 100 02/17/25 09:38 Respiratory Rate 20 02/17/25 09:38 Blood Pressure 155/113 H 02/17/25 09:38 Pulse Oximetry 100 02/17/25 09:38 Oxygen Delivery Room Air 02/17/25 09:38 Pulse Rate 87 02/17/25 12:53 Respiratory Rate 18 02/17/25 12:53 Blood Pressure 137/100 H 02/17/25 12:53 Pulse Oximetry 100 02/17/25 12:53 Oxygen Delivery Room Air 02/17/25 09:38 Procedures Ear Wax Removal Right Ear: Ear Wax Removal Date: 02/17/25 Ear Wax Removal Time: 10:45 Results: Re-examined: cerumen removed completely TM Examination: TM(s) erythematous (right) Ear Canal Exam: atraumatic Patient Tolerated Procedure: well Complications: no problems Technique: ear canal irrigated and ear canal curetted MDM - Nausea/Vomiting/Diarrhea Differential Diagnosis Differential diagnosis: Likely gastroenteritis, drug-induced nausea and vomiting, dehydration and other (Vertigo, cerumen impaction, otitis media) Lab Data Attestation: I reviewed the patient's lab results. 02/17/25 09:55 02/17/25 09:55 Labs: Lab Results 11/21/25 11/21/25 Range/Units 09:55 11:55 WBC 5.1 (4.5-10.0) K/mm3 RBC 4.39 (4.2-5.4) M/mm3 Hgb 13.4 (12.0-15.0) g/dL Hct 39.3 (37.0-47.0) % MCV 89.5 (80-100) fl MCH 30.5 (26-34) pg MCHC 34.1 (32-36) g/dl RDW 12.7 (11.5-14.5) % Plt Count 170 (150-375) k/mm3 MPV 11.4 H (7.4-10.4) fl Immature Gran % (Auto) 0.2 (0-0.5) % Neut % (Auto) 64.3 (45.5-73.1) % Lymph % (Auto) 27.0 (18.3-44.2) % [place] % (Auto) 5.8 (2.6-8.5) % Eos % (Auto) 2.1 (0-4.4) % Baso % (Auto) 0.6 (0.2-1.2) % Lymph # (Auto) 1.39 (0.9-3.2) K/mm3 [place] # (Auto) 0.3 (0.1-0.6) K/mm3 Eos # (Auto) 0.1 (0-0.3) K/mm3 Baso # (Auto) 0.0 (0.0-0.1) K/mm3 Abs Immat Gran (auto) 0.01 (0.00-0.031) K/mm3 Absolute Neuts (auto) 3.3 (1.3-6.7) K/mm3 Absolute Nucleated RBC 0.000 (0.0-0.012) K/mm3 Nucleated RBC % 0.0 (0.0-0.2) % Sodium 138 (137-145) mmol/L Potassium 3.5 (3.4-5.0) mmol/L Chloride 107 (98-107) mmol/L Carbon Dioxide 17 L (22-30) mmol/L Anion Gap 14 H (4-12) mmol/L BUN 15 (7-17) mg/dL Creatinine 0.75 (0.7-1.0) mg/dL Estim Creat Clear Calc 48 ml/min Estimated GFR > 60 (59 - ) Glucose 204 H (65-110) mg/dL Calcium 9.9 (8.4-10.2) mg/dL Total Bilirubin 1.0 (0.2-1.3) mg/dL AST 35 (14-36) U/L ALT 28 (6-35) U/L Alkaline Phosphatase 103 (38-126) U/L Total Protein 8.3 H (6.3-8.2) g/dL Albumin 4.8 (3.5-5.1) g/dL Lipase 180 (23-300) U/L Urine Color Yellow (Yellow) Urine Appearance Clear (Clear) Urine pH 7.5 (5.0-9.0) Ur Specific [place] 1.012 (1.001-1.035) Urine Protein Negative (Negative) mg/dL Urine Glucose (UA) Negative (Negative) mg/dL Urine Ketones Negative (Negative) mg/dL Ur Blood (Man) Negative (Negative) Urine Nitrate Negative (Negative) Urine Bilirubin Negative (Negative) Urine Urobilinogen 0.2 (<2.0) mg/dL Leukocyte Esterase Rfl Negative (Negative) JAZMYN/UL Discharge Plan Discharge Clinical Impression: Vertigo, Nausea & vomiting, Elevated blood sugar level Patient Disposition: Home Condition: Stable Instructions: Vertigo (ED), Acute Nausea and Vomiting (ED) Additional Instructions: Return ER if you fall and injure herself, you develop chest pain or shortness of breath, you cannot keep down food water, or you have additional concerns. Patient Language: Polish Prescriptions: New meclizine 25 mg tablet 25 mg PO TID PRN (Reason: dizziness) Qty: 14 0RF famotidine 20 mg tablet 20 mg PO DAILY Qty: 10 0RF ondansetron 4 mg tablet,disintegrating 4 mg PO Q6H PRN (Reason: nausea and vomiting) Qty: 10 0RF No Action atorvastatin 10 mg Tablet 40 mg PO HS acetaminophen [Mapap (acetaminophen)] 325 mg Tablet 650 mg PO Q4H PRN (Reason: Mild Pain (1-3) Or Fever) Qty: 30 0RF lisinopril 5 mg Tablet 25 mg PO DAILY hydrocodone-acetaminophen [[place]] 5-325 mg tablet 1 tablet PO Q4-6H PRN (Reason: pain) Qty: 20 0RF sulfamethoxazole-trimethoprim [Bactrim DS] 800-160 mg tablet 1 tablet PO Q12H Qty: 14 0RF ondansetron 4 mg tablet,disintegrating 4 mg PO Q8H PRN (Reason: nausea and vomiting) Qty: 10 0RF Follow-up/Referrals: Gwendolyn Menard DO [Physician, Family Practice] - 1 Week PHYSICIAN,LIVERY CAR DRIVER [Primary Care Provider, Internal Medicine]
--- NOTE | 2025-02-17 11:06 | PC.NURSE ---
Pts family members requesting medication to treat pts BP of 151/97. EDP Dr. Seo aware, no new orders at this time.
--- OUTSIDE RECORDS SUMMARY | 2025-02-17 11:12 | XMS_ITS | Data Portability ---
Author Organization [place] [facility], Main Office Address [address] [place] [address] Assessment Encounter Date Assessment Date Assessment LastModified by Organization Details LastModified Time 10/27/2024 10/27/2024 07/29/2024: WBC 3.8 AST 44, T octaviano 1.40 [email or web address] Not available 10/27/2024 15:49:53 Plan of Treatment Reminders Order Date Submit Date Provider Last Modified By Organization Details Last Modified Time Details Appointments None recorded. Lab lipid panel, serum 2024 025 [facility] (Lab), [address] [place], [address], 18:22:13 CBC w/ auto diff 2024 025 [facility] (Lab), [address] [place], [address], 17:13:58 TSH, serum or plasma 2024 025 [facility] (Lab), [address] [place], [address], 17:50:29 CMP, serum or plasma 2024 025 [facility] (Lab), [address] [place], [address], 5 18:22:18 gamma-gluta myl transferase (ggt), serum 2024 025 [facility] (), [address] [place], [address], 5 18:22:21 hepatitis panel (A+B+C), acute, serum 2024 025 [facility] (), [address] [place], [address], 5 17:50:24 lipid panel, serum 2024 025 [facility] (Lab), [address] [place], [address], 5 13:20:34 CBC w/ auto diff 2024 025 [facility] (Lab), [address] [place], [address], 5 13:42:50 TSH, serum or plasma 2024 025 [facility] (Lab), [address] [place], [address], 5 13:37:35 CMP, serum or plasma 2024 025 [facility] (Lab), [address] [place], [address], 5 13:20:39 Referral None recorded. Procedures None recorded. Surgeries None recorded. Imaging MAMMO, screening, digital, bilateral - Please call patient to schedule. 2024 025 [email or web address] [facility] ([facility] Scheduling), [address] [place], [address], 5 16:02:40 US, liver - Please call patient to schedule. 2024 025 [facility] ([facility] Scheduling), [address] [place], [address], 5 11:06:50 DEXA, axial skeleton - Please call patient to schedule. 2024 025 [email or web address] [facility] ([facility] Call Scheduling), [address] [place], [address], 5 16:02:40 MAMMO, screening, digital, bilateral - Please call patient to schedule. [address] (One Call Scheduling), [address] [place], [address], 5 17:15:42 DEXA, axial skeleton - Please call patient to schedule. [address] (One Call Scheduling), [address] [place], [address], 5 17:15:42 Medication Orders lisinopril 40 mg tablet 2024 025 [facility]/Pharmacy #[id number], [address] [place], [address], 5 15:52:00 atorvastati n 40 mg tablet 2024 025 [facility]/Pharmacy #[id number], [address] [place], [address], 5 15:52:01 Patient Targets Encounter Date Encounter Id Patient Goals Patient Target Last Modified By Organization Details Last Modified Time 10/27/2024 [id number] discussed diet,exercis e Not available 10/27/2024 15:57:59 Patient Instructions Encounter Date Encounter Id Patient Instructions Last Modified By Organization Details Last Modified Time 10/27/2024 [id number] dementia rating scale-2* Not available 01/11/2025 11:36:24 multi-dimensiona l health assessment questionnaire* Not available 10/27/2024 16:20:41 care plan* Not available 09/29 16:20:51 advance directiv es: care instructions uyen 2 Not available 10/27/2024 16:00:00 advance care planning: care instructions uyen 2 Not available 10/27/2024 16:00:00 [place] Advance Directives uyen 2 Not available 10/27/2024 16:00:00 Personalized a lth Plan and Screening Recommendations Advance Directives - Do you have one? No Advance Directives - Do we have your advance directive on file in your health record? No, please bring in a copy at your earliest convenience Primary Prevention/Interven tion (prevents or decreases the chance of common diseases from occurring) Smoking Risk: Non Smoker Alcohol Misuse Screening: Negative Weight: Appropriate Physical activity: Appropriate physical activity Nutrition: Average Fall Risk (screened today): Low Vaccines Pneumococcal: Recommended today Influenza: Recommended today Chronic Disease Risks Stroke: Active diagnosis, Continue current treatment plan Heart Attack: Active diagnosis, Continue current treatment plan Clogging of the Arteries: Active diagnosis, Continue current treatment plan Diabetes: Low Risk Active diagnosis, Continue current treatment plan Secondary Prevention/Interven tion (detects treatable diseases before they may cause symptoms, disability, or ) Breast Cancer Screening with mammogram: Recommended today Cervical/Uterine/Ov debi Cancer Screening: Recommended today Osteoporosis Screening: Recommended today Date Screening Last Performed: Colon Cancer Screening: No screening necessary Date Screening Last Performed: 05/01/2023____ __ Eye Disease Screening: Recommended today Dementia Risk: Intermediate Depression Screening: Negative Active diagnosis, Continue current treatment plan Not available 10/27/2024 15:58:30 DNR , advanced directive discussed Not available 10/27/2024 15:58:45 Reason for Referral None Reported. Results Created Date Observation Date Name Description Value Unit Range Abnormal Flag Note LastModifiedBy Organization Detail LastModifiedTime Result Notes None recorded. Problems Name Problem SNOMED Code Status Onset Date Resolution Date Notes Provider Name and Address Organization Details Recorded Time Essential hypertension 98954021 Active 2024 Reema phillips MD [address] [facility], [address], [place], [address], [employer] [facility] 5 11:57:04 Hyperlipidemia 19565732 Active 2024 Reema phillips MD [address], [address], [place], [address], [facility] 5 11:57:07 Asthma 098307031 Active 2024 Reema phillips MD [address], [place], [address], [facility] 5 15:37:17 Bilateral cataracts 92437946 Active 2024 Reema phillips MD [address], [address], [place], [address], [facility] 5 17:05:50 Liver enzymes level above reference range 698826418 Active 2024 Reema phillips MD [address], [address], [place], [address], [facility] 5 10:43:05 Anemia 468357025 Active 2024 KLEVER Segura null, [employer] [facility] 5 16:29:06 Problem Notes None recorded. Procedures Surgical History Date Name Laterality Status Provider Name and Address Organization Details Recorded Time Medicare Wellness CPT Code, subsequent completed Kalee Naheed [employer] [facility] 10/26/2024 12:04:45 Imaging Results None recorded. Procedure Notes None recorded. Medical Equipment None Reported. Allergies No known drug allergies Medications Name Sig Start Date Stop Date Status Note LastModified by Organization Details LastModified Time atorvastati n 40 mg tablet TAKE 1 TABLET BY MOUTH EVERY DAY active Not Available Not Available No t Available sulfamethox azole 800 mg-trimetho prim 160 mg tablet TAKE 1 TABLET BY MOUTH EVERY 12 HOURS 10/27 completed Not Available Not Available Not Available albuterol sulfate HFA 90 mcg/actuati on aerosol inhaler INHALE 2 PUFFS BY MOUTH 20 MINUTES BEFORE WORK active Not Available Not Available No t Available lisinopril 40 mg tablet TAKE 1 TABLET BY MOUTH EVERY DAY active Not Available Not Available No t Available ondansetron 4 mg disintegrat ing tablet DISSOLVE 1 TABLET ON TONGUE EVERY 8 HOURS NEEDED FOR NAUSEA AND VOMITING 10/27 completed Not Available Not Available Not Available calcium 600 mg (as carbonate)- vitamin D3 10 mcg (400 unit) tablet TAKE 1 TABLET BY MOUTH TWICE A DAY 10/27 completed Not Available Not Available Not Available Vitals Date Recorded Body weight Body mass index (BMI) Body height Body temperature Heart rate Systolic And Diastolic Provider Name and Address Organization Details Last Updated DateTime 29686.6 8 g 22.9 kg/m2 154.94 cm 97.2 [degF] 96 /min 120/70 mm[Hg] KLEVER Segura [place] [employer] [facility] 15:14:23 Date Recorded Body height Body mass index (BMI) Body weight Heart rate Body temperature Oxygen saturation Pain severity - 0-10 verbal numeric rating [Score] - Reported Systolic And Diastolic Provider Name and Address Organization Details Last Updated DateTime 154.94 cm 22.5 kg/m2 83557.4 9 g 87 /min 97.3 [degF] 97 % 0 114/72 mm[Hg] Shelby Rodriguez MA [facility] 15:14:57 Date Recorded Respiratory rate Provider Name a nh Address Organization Details Last Updated DateTime 10/27/2024 16 /min Kalee Naheed [place] [employer] [facility] 10/27/2024 15:59:35 Social History Question Answer Notes LastModified by Organizat ion Details LastModified Time Tobacco Smoking Status Never Smoker KLEVER Segura null, [employer] [facility] 07/19/2024 15:09:38 Do You Have An Advance [...] Or The Highest Degree You Have Received? [id number] Information not available 07/19/2024 Have There Been Any Changes To Your Family Or Social Situation? No Information no t available 10/27/2024 What Is The Fluoride Status Of Your Home? Unknown Information not available 07/19/2024 Are There Any Guns Present In Your Home? No Information not available 07/19/2024 Do You Use Insect Repellent Routinely? No Information not available 10/27/2024 Where Do You Live? SingleLevelHouse Information not available 07/19/2024 Advance Directive- Providers Has Reviewed Directive And Consents To Follow Them (insert Provider Name With Any Objectives In Notes Field) Yes Information not available 10/27/2024 Presence Of Domestic Violence No Information no t available 10/27/2024 Guns Present In The Home? No Information not available 10/27/2024 Are You Able To Care For Yourself? Yes Information not available 10/27/2024 Are You Blind Or Do Yo Have Difficulty Seeing? No Information not available 10/27/2024 Are You Deaf Or Do You Have Serious Difficulty Hearing? No Information not available 10/27/2024 General Stress Level? Low Information not available 10/27/2024 Live Alone Of With Others? With Others Information not available 10/27/2024 Do You Have A Medical Power Of Correctional Program Officer? No Information not available 07/19/2024 What Was The Date Of Your Most Recent Tobacco Screening? 10/27/2024 Information not available 10/27/2024 How Many Children Do You Have? 3 Information not available 10/27/2024 Do You Have Any Pets? No Information [...] Your House? Yes Information not available 07/19/2024 Do You Use Sunscreen Routinely? No Information not available 10/27/2024 Has Tobacco Cessation Counseling Been Provided? No N/a Information not available 07/19/2024 Have You Recently Traveled Abroad? No Information not available 07/19/2024 Do You Have Difficulty Walking Or Climbing Stairs? No Information not available 07/19/2024 Do You Have Any Dietary Restrictions? No Information not available 10/27/2024 Sex: Female Functional Status Question Answer Note [...] currently employed? Yes Information not available 07/19/2024 Do you have transportation difficulties? No Information not available 10/27/2024 Are you able to walk independently without assistance or assistive devices? YESWOREST Information not available 07/19/2024 Do you have difficulty doing errands alone? No Information not available 07/19/2024 Are you able to care for yourself independently? 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 No Information not available 07/19/2024 What is your exercise level? Occasional stays active with work Information not available 07/19/2024 Mental Status Question Answer Note LastModified by Organizat ion Details LastModified Time Do you feel stressed (tense, restless, nervous, or anxious, or unable to sleep at night)? [id number] Information not available 07/19/2024 Do you have [...] disorder Not available 2024 15:07:54 Medical History Condition Response NERVE DISEASE N BLINDNESS N RHEUMATIC FEVER N KIDNEY STONES N BLADDER PROBLEMS N MRSA N OTHER # 1 N POLIO N LUNG DISEASE/DISORDER N HISTORY OF DRUG ABUSE N RADIATION / CHEMOTHERAPY N COPD N Other # 2 N BLOOD DISEASES N EAR OR HEARING PROBLEMS N MUMPS N SHINGLES N BOWEL PROBLEMS N DEPRESSION (INCLUDING POST ) N FAILED BACK SYNDROME N STROKE/TIA N ULCERS N BENIGN PROSTATIC HYPERPLASIA N MEASLES N HYPOTENSION N MYOCARDIAL INFARCTION N OBESITY N GERD/NAUSEA N ANEURYSM N URINARY/BLADDER/KIDNEY PROBLEMS N CORONARY ARTERY DISEASE (CAD) N Do you have Advance directive? N ADDICTION CONCERNS N ENDOMETRIOSIS N Impotence N USE OF BLOOD THINNERS N SKIN PROBLEMS N GASTROINTESTINAL DISORDER N PERIPHERAL VASCULAR DISEASE N MUSCLE,JOINT OR BONE PROBLEMS N GASTROINTESTINAL BLEEDING N BLOOD CLOTS N ASTHMA N Abdominal Pain N CATARACTS N ARTERIAL INSUFFICIENCY N ERECTILE DYSFUNCTION N VARICOSITIES N GI PROBLEMS N Low Testosterone N INFERTILITY N AIDS/HIV N CHEMOTHERAPY / RADIATION N LIVER DISEASE N MALE HYPOGONADISM N HYPERTENSION N Deficiency N TOURETTE'S N ANXIETY DISORDER N BLOOD TRANSFUSION N ANEMIA/BLOOD DISORDER N CHRONIC EAR INFECTIONS N TUBERCULOSIS N GLAUCOMA N FOOT PROBLEM N DIVERTICULITIS N CHICKENPOX N SLEEP APNEA N BACK INJECTIONS N ALLERGIES/HAYFEVER N INFECTIOUS DISEASE N HEART ARRHYTHMIA N PROSTATE N ESRD N INSOMNIA N HIGH CHOLESTEROL / HYPERLIPIDEMIA N HYPERTHYROIDISM N EYE PROBLEMS N PVD N EDEMA N CHRONIC PAIN SYNDROME N HYPOTHYROIDISM N CONSTIPATION N CAROTID BLOCKAGE N BACK / NECK PROBLEMS N HAVE YOU BEEN HOSPITALIZED OR SEEN IN [facility] IN THE PAST YEAR ? N ATHEROSCLEROSIS N BREAST PROBLEMS N DIALYSIS N POLYCYSTIC OVARIES N ECZEMA N OSTEOPOROSIS N ARTHRITIS N NO SIGNIFICANT PAST MEDICAL HISTORY N APPENDICITIS N DIABETES, TYPE N BAD TEETH N VON WILLIBRAND'S DISEASE N ENT N HEARTBURN / REFLUX N GI N AUTISM SPECTRUM DISORDER (ASD) N POST LAMINECTOMY SYNDROME N HEPATITIS / LIVER DISEASE N GOUT N SLEEP DISORDER N ALZHEIMER'S DISEASE N Brain Problems N HERPES N DEMENTIA N HEADACHES/MIGRAINES N SEIZURES/EPILEPSY N VASCULAR DISEASE N PACEMAKER N DIZZINESS N HEART DISEASE/HEART PROBLEMS N KIDNEY DISEASE N MULTIPLE SCLEROSIS N NEUROPSYCHOLOGICAL N CARDIAC ARRHYTHMIA N CANCER: SPECIFY N ATRIAL FIBRILLATION N Gall Stones N PULMONARY EMBOLISM N AUTOIMMUNE DISEASE N Gynecological History Statement/Question Response How many live births 3 Date of Last Colonoscopy Date of Last Mammogram Date of LMP Most Recent Bone Density Date of Last Pap Current Control Method Menopause Obstetrics History GPAL:G 3 P 3 0 0 3 Type Value Multiple Births 0 Full Term 3 Induced 0 Spontaneous 0 Premature 0 Living 3 Ectopics 0 Total 3 Immunizations Vaccine Type Date Status Note Provider Nam e and Address Organization Details Recorded Time Influenza, split virus, quadrivalent, preservative 3 completed Maddy Morgan RMMarlene brown, [employer] [facility] 07/19/2024 15:06:40 Influenza, high-dose, quadrivalent, PF 3 completed KLEVER Segura, [employer] [facility] 07/19/2024 15:06:40 COVID-19, mRNA, LNP-S, PF, 30 mcg/0.3 mL dose 1 completed Maddy Morgan RMMarlene brown, [employer] [facility] 07/19/2024 15:06:40 COVID-19, mRNA, LNP-S, PF, 30 mcg/0.3 mL dose 1 completed Maddy Morgan RMA null, [place] [facility] 07/19/2024 15:06:40 COVID-19, mRNA, LNP-S, PF, 30 mcg/0.3 mL dose 1 completed Maddy Morgan RMA null, [place] [facility] [employer] [facility] 07/19/2024 15:06:40 Past Encounters Encounter ID Performer Location Encounter Start Date Encounter Closed Date Diagnosis/Indication Diagnosis SNOMED-CT Code Diagnosis ICD10 Code Diagnosis IMO Codes Diagnosis Note [id number] Reema street MD [facility] Internal Med [address] [facility], [facility] [address] [place] [address] 07/19/2024 14:51:49 07/19/2024 15:53:56 Screening - NAD 608840089 Z13.9 C-scope: Did get this in 2022 [...] understand ing of the above Essential hypertension 48161698 I10 On lisinopril 40mg dailyGet labs Hyperlipidemia 32549753 E78.5 On atorvastat in 40mg dailyGet labs Postmenopausal state 764 94175 Z78.0 Screening mammography 24 921136 Z12.31 Asthma 295142964 J45.90 9 On albuterolD oes well Bilateral cataracts 9572 2003 H26.9 States that she does see her eye MD and there is discussion to do cataract surgery [id number] Reema [address] MD [facility] [address] [facility] [address] [place] [address] 10/27/2024 15:08:49 10/27/2024 16:02:40 Adult health examination 089892191 Z00.00 Screening - NAD 99056373 3 Z13.9 C-scope: Did get this in 2022 [...] understand ing of the above Essential hypertension 93888094 I10 On lisinopril 40mg dailyGet labs Hyperlipidemia 84278441 E78.5 On atorvastat in 40mg dailyGet labs Postmenopausal state 764 88348 Z78.0 Screening mammography 24 920934 Z12.31 Asthma 486280759 J45.90 9 On albuterolD oes well Bilateral cataracts 9572 2003 H26.9 States that she does see her eye MD and there is discussion to do cataract surgery Liver enzy mes level above reference range 664394371 R74.8 888200 Get US liver, hep panel and GGT Health Concerns Section Related Observation LastModified by Organization Detai ls LastModified Time None Recorded Concern Status LastModified by Organization Details LastModified Time None Recorded Advance Directives Directive N: Payers Insurance Date Sequence Insurance Name Policy Number Policy Cohn Covered Member ID Cohn Member ID Guarantor Name 05/12/2024 1 [employer] Chely Daniels [id number] Chely Daniels 02/06/2025 1 [employer] (MEDICARE REPLACEMENT/ ADVANTAGE - PPO) [id number] Chely Daniels [id number] Chely Daniels Notes Date Note Type Note Provider Name and Address Organization Details Recorded Time 07/19/2024 text/html OV 07/19/2024:Here to establish care Present Hx:HTNHLDAsthma Here to get labs, she is employed at [employer] and [facility], no new labs Reema Werner MD [address] [place] [address], [facility] [address], [place], [address], [place] [facility] 07/19/2024 17:06:48 10/27/2024 text/html OV 07/19/2024:Here to establish care Present Hx:HTNHLDAsthma Here to get labs, she is employed at [employer] and [facility] no new labs OV 10/27/2024: Here for her f/u apt, and MWVShe feels very well today, did do the labs Reema Werner MD [address], [facility] [address], [place], [address], [place] [facility] 10/27/2024 18:56:16 OBGyn Episode No OBEpisode recorded.
--- OUTSIDE RECORDS SUMMARY | 2025-02-17 11:12 | XMS_ITS | Data Portability ---
Author Organization [facility] [place] Address [address] [place] [address] Care Team Providers Care Ball Shagger Name Role Phone SANDI JONES Primary Care Provider [phone] Assessment No assessment recorded. Plan of Treatment Reminders Order Date Submit Date Provider Last Modified By Organization Details Last Modified Time Details Appointments None recorded . Lab lipid panel, serum 2023 024 [facility], [address], [place], [address], 4 13:10:03 urinalys is complete , reflex culture 2023 024 [facility], [address], [place], [address], 4 13:10:05 CMP, serum or plasma 2023 024 [facility], [address], [place], [address], 4 13:10:04 HbA1c (hemoglo bin A1c), blood 2023 024 [facility], [address], [place], [address], 4 13:10:05 HbA1c (hemoglo bin A1c), blood 2022 023 [facility], [address], [place], [address], 3 07:13:58 CMP, serum or plasma 2022 023 [facility], [address], [place], [address], 3 06:16:25 CBC w/ auto diff 2022 023 [facility], [address], [place], [address], 3 06:16:26 albumin/ creatini ne, mass ratio, urine 2022 023 [facility], [address], [place], [address], 3 07:13:58 lipid panel, serum 2022 023 [facility], [address], [place], [address], 3 06:16:[address] referral - Needs colonosc opy 2022 023 aidan Kumar MD, [address] [facility] [address], [place], [address], 4 10:29:53 Procedures None recorded . Surgeries None recorded . Imaging MAMMO, screenin g, digital, bilatera l [address] [facility]), [address] [place], [address], 4 14:32:26 DEXA [address] [facility] ([facility]), [address] [place], [address], 3 10:18:45 Medication Orders calcium 600 mg (as carbonat e)-vitam in D3 10 mcg (400 unit) tablet 2023 024 [id number], [address], [place], [address], 4 13:11:34 atorvast atin 40 mg tablet 2023 024 [id number], [address], [place], [address], 4 12:23:24 lisinopr il 40 mg tablet 2023 024 [id number], [address], [place], [address], 4 12:23:24 albutero l sulfate HFA 90 mcg/actu ation aerosol inhaler 2023 024 [id number], [address], [place], [address], 4 12:07:32 lisinopr il 40 mg tablet 2022 023 [address] [facility] [id number], [address], [place], [address], 3 12:26:27 atorvast atin 40 mg tablet 2022 023 [id number], [address], [place], [address], 3 12:26:27 lisinopr il 20 mg-hydro chloroth iazide 12.5 mg tablet [address] [facility], [address] [place] [address], [id number], 3 12:19:54 atorvast atin 40 mg tablet 2022 023 [facility], [address] [place] [address], [id number], 12:41:36 ibuprofe n 800 mg tablet 2022 023 [email or web address], [address] [place] [address], [id number], 12:04:07 cycloben zaprine 5 mg tablet 2022 023 [facility], [address] [place] [address], [id number], 12:19:58 Patient TargetsNo targets recorded. 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 Not Available [facility] ([facility]) [address] [facility], [place], [address], 04/03/2022 11:11:51 03/27/20 22 04/03/2022 IGP, APTIM A HPV diagnosis: Chrissy t ELENA TORRESE FOR INTRA EPITH ELIAL LESIO N OR ELIDA HANSEN . Not Available [facility] ([facility]) [address] [place], [address], 04/03/2022 11:11:51 03/27/20 22 04/03/2022 IGP, APTIM A HPV specimen adequacy: Chrissy t Satis facto ry for evalu ation . Endoc ervic al and/o r squam ous metap lasti c cells (endo cervi luisito compo nent) are prese nt. Not Available [facility] ([facility]) [address] [place], [address], 04/03/2022 11:11:51 03/27/20 22 04/03/2022 IGP, APTIM A HPV clinician provided ICD10: Chrissy rico Z01.4 19 Not Available [facility] ([facility]) [address] [place], [address], 04/03/2022 11:11:51 03/27/20 22 04/03/2022 IGP, APTIM A HPV performed by: Chrissy Leon Cytot agustina rico Not Available [facility] ([facility]) [address] [place], [address], 04/03/2022 11:11:51 03/27/20 22 04/03/2022 IGP, APTIM A HPV . . Not Available [facility] ([facility]) [address] [place], [address], 04/03/2022 11:11:51 03/27/20 22 04/03/2022 IGP, APTIM [...] ts do occur . Not Available [facility] ([facility]) [address] [facility], [place], [address], 04/03/2022 11:11:51 03/27/20 22 04/03/2022 IGP, APTIM A HPV test methodology: Commen t This liqui d based ThinP rep(R ) pap test was scree uriel with the use of an image guide d systmadison m. Not Available [facility] ([facility]) [address] [facility], [place], [address], 04/03/2022 11:11:51 03/27/20 22 03/27/2022 urina lysis , dipst ick Leukocytes Negati ve Not Available In-Office Order Internal Use Only DO Not Attach Compendium DO Not Attach Compendium, Do Not Delete/merge, [id number] 03/27/2022 13:11:10 03/27/20 22 03/27/2022 urina lysis , dipst ick Nitrite negati ve Not Available In-Office Order Internal Use Only DO Not Attach Compendium DO Not Attach Compendium, Do Not Delete/merge, [id number] 03/27/2022 13:11:10 03/27/20 22 03/27/2022 urina lysis , dipst ick Urobilinogen .2 Not Available In-Of fice Order Internal Use Only DO Not Attach Compendium DO Not Attach Compendium, Do Not Delete/merge, [id number] 03/27/2022 13:11:10 03/27/20 22 03/27/2022 urina lysis , dipst ick Protein Negati ve Not Available In-Office Order Internal Use Only DO Not Attach Compendium DO Not Attach Compendium, Do Not Delete/merge, [id number] 03/27/2022 13:11:10 03/27/20 22 03/27/2022 urina lysis , dipst ick pH 5.5 Not Available In-Office Order Internal Use Only DO Not Attach Compendium DO Not Attach Compendium, Do Not Delete/merge, [facility] 03/27/2022 13:11:10 03/27/20 22 03/27/2022 urina lysis , dipst ick Blood Negati ve Not Available In-Office Order Internal Use Only DO Not Attach Compendium DO Not Attach Compendium, Do Not Delete/merge, [facility] 03/27/2022 13:11:10 03/27/20 22 03/27/2022 urina lysis , dipst ick Specific Martin 1.030 Not Available In-Off ice Order Internal Use Only DO Not Attach Compendium DO Not Attach Compendium, Do Not Delete/merge, [facility] 03/27/2022 13:11:10 03/27/20 22 03/27/2022 urina lysis , dipst ick Ketone Negati ve Not Available In-Office Order Internal Use Only DO Not Attach Compendium DO Not Attach Compendium, Do Not Delete/merge, [facility] 03/27/2022 13:11:10 03/27/20 22 03/27/2022 urina lysis , dipst ick Bilirubin Negati ve Not Available In-Office Order Internal Use Only DO Not Attach Compendium DO Not Attach Compendium, Do Not Delete/merge, [facility] 03/27/2022 13:11:10 03/27/20 22 03/27/2022 urina lysis , dipst ick Glucose Negati ve Not Available In-Office Order Internal Use Only DO Not Attach Compendium DO Not Attach Compendium, Do Not Delete/merge, [facility] 03/27/2022 13:11:10 03/27/20 22 03/27/2022 urina lysis , dipst ick Appearance Clear Not Available In-Offi ce Order Internal Use Only DO Not Attach Compendium DO Not Attach Compendium, Do Not Delete/merge, [facility] 03/27/2022 13:11:10 03/27/20 22 03/27/2022 urina lysis , dipst ick Color Yellow Not Available In-Office Order Internal Use Only DO Not Attach Compendium DO Not Attach Compendium, Do Not Delete/merge, [id number] 03/27/2022 13:11:10 02/14/2002/13/2023 LIPID PANEL cholesterol, total 198 mg/dL 100-[address] [facility] [address] [place], [address], 02/14/2023 06:16:24 02/14/20 23 02/13/2023 LIPID PANEL triglyceride s 73 mg/dL 0-149 Not Available [facility] Department [address] [place], [address], 02/14/2023 06:16:24 02/14/2002/13/2023 LIPID PANEL HDL cholesterol 84 mg/dL 40-999 Not Available [facility] Department [address] [place], [address], 02/14/2023 06:16:24 02/14/20 23 02/13/2023 LIPID PANEL VLDL cholesterol luisito 15 mg/dL 5-40 Not Available [facility] Department [address] [place], [address], 02/14/2023 06:16:24 02/14/20 23 02/13/2023 LIPID PANEL LDL chol calc (nih) 110 mg/dL 0-99 above high normal Not Available [facility] [address] [place], [address], 02/14/2023 06:16:24 02/14/2002/13/2023 COMP. METAB OLIC PANEL (14) glucose 95 mg/dL 70-[address] [facility] [address] [place], [address], 02/14/2023 06:16:25 02/14/20 23 02/13/2023 COMP. METAB OLIC PANEL (14) BUN 13 mg/dL 8-[address] [facility] [address] [place], [address], 02/14/2023 06:16:25 02/14/20 23 02/13/2023 COMP. METAB OLIC PANEL (14) creatinine 0.70 mg/dL 0.76-1 .27 below low normal Not Available [facility] [address] [place], [address], 02/14/2023 06:16:25 02/14/20 23 02/13/2023 COMP. METAB OLIC PANEL (14) eGFR 96 >=60 Units for eGFR value s are mL/mi n/1.7 3 The eGFR Calcu latio n has not been valid ated for patie nts under the age of 18. If test resul ts are displ ayed for a patie nt under the age of 18, disre kaitlin that value . Not Available [facility] [address] [place], [address], 02/14/2023 06:16:25 02/14/20 23 02/13/2023 COMP. METAB OLIC PANEL (14) BUN/creatini ne ratio 19 10-28 Not Available [facility] Department [address] [place], [address], 02/14/2023 06:16:25 02/14/20 23 02/13/2023 COMP. METAB OLIC PANEL (14) sodium 145 mmol/ L 134-14 4 above high normal Not Available [facility] [address] [place], [address], 02/14/2023 06:16:25 02/14/20 23 02/13/2023 COMP. METAB OLIC PANEL (14) potassium 4.8 mmol/ L 3.5-5. [address] [facility] [address] [place], [address], 02/14/2023 06:16:25 02/14/20 23 02/13/2023 COMP. METAB OLIC PANEL (14) chloride 106 mmol/ L 96-[address] [facility] [address] [place] [address], [address], 02/14/2023 06:16:25 02/14/20 23 02/13/2023 COMP. METAB OLIC PANEL (14) carbon dioxide, total 25 mmol/ L Not Available [facility] [address] [place], [address], 02/14/2023 06:16:25 02/14/20 23 02/13/2023 COMP. METAB OLIC PANEL (14) calcium 10.6 mg/dL 8.7-10 .3 above high normal Not Available [facility] [address] [place], [address], 02/14/2023 06:16:25 02/14/20 23 02/13/2023 COMP. METAB OLIC PANEL (14) protein, total 8.1 g/dL 6.0-8. [address] [facility] [address] [place], [address], 02/14/2023 06:16:25 02/14/20 23 02/13/2023 COMP. METAB OLIC PANEL (14) albumin 5.0 g/dL 3.8-4. 8 above high normal Not Available [facility] [address] [place], [address], 02/14/2023 06:16:25 02/14/20 23 02/13/2023 COMP. METAB OLIC PANEL (14) globulin, total 3.1 g/dL 1.5-4. [address] [facility] [address] [place], [address], 02/14/2023 06:16:25 02/14/20 23 02/13/2023 COMP. METAB OLIC PANEL (14) A/G ratio 2.0 1.2-2. [address] [facility] [address] [place], [address], 02/14/2023 06:16:25 02/14/20 23 02/13/2023 COMP. METAB OLIC PANEL (14) bilirubin, total 0.8 mg/dL 0.0-1. [address] [facility] [address] [place], [address], 02/14/2023 06:16:25 02/14/20 23 02/13/2023 COMP. METAB OLIC PANEL (14) alkaline phosphatase 108 IU/L 44-121 Not Available [facility] Department [address] [place] [address], [address], 02/14/2023 06:16:25 02/14/2002/13/2023 COMP. METAB OLIC PANEL (14) AST (SGOT) 31 IU/L 0-40 Not Available [facility] Department [address] [place] [address], [address], 02/14/2023 06:16:25 02/14/20 23 02/13/2023 COMP. METAB OLIC PANEL (14) ALT (SGPT) 21 IU/L 0-32 Not Available [facility] Department [address] [place] [address], [address], 02/14/2023 06:16:25 02/14/20 23 02/13/2023 CBC WITH DIFFE RENTI AL/PL ATELE T WBC 4.3 x10e3 /uL 3.4-[address] [facility] [address] [place], [address], 02/14/2023 06:16:25 02/14/20 23 02/13/2023 CBC WITH DIFFE RENTI AL/PL ATELE T RBC 4.54 x10e6 /uL 3.77-[address] [facility] [address] [place], [address], 02/14/2023 06:16:25 02/14/20 23 02/13/2023 CBC WITH DIFFE RENTI AL/PL ATELE T hemoglobin 13.5 g/dL 11.1-[address] [facility] [address] [place], [address], 02/14/2023 06:16:25 02/14/2002/13/2023 CBC WITH DIFFE RENTI AL/PL ATELE T hematocrit 42.9 % 34.0-[address] [facility] [address] [place], [address], 02/14/2023 06:16:25 02/14/2002/13/2023 CBC WITH DIFFE RENTI AL/PL ATELE T MCV 95 fL 79-[address] [facility] [address] [place], [address], 02/14/2023 06:16:25 02/14/2002/13/2023 CBC WITH DIFFE RENTI AL/PL ATELE T MCH 29.7 pg 26.6-[address] [facility] [address] [place], [address], 02/14/2023 06:16:25 02/14/20 23 02/13/2023 CBC WITH DIFFE RENTI AL/PL ATELE T MCHC 31.5 g/dL 31.5-[address] [facility] [address] [place], [address], 02/14/2023 06:16:25 02/14/20 23 02/13/2023 CBC WITH DIFFE RENTI AL/PL ATELE T RDW 13.0 % 11.5-[address] [facility] [address] [place], [address], 02/14/2023 06:16:25 02/14/2002/13/2023 CBC WITH DIFFE RENTI AL/PL ATELE T platelets 204 x10e3 /uL 150-[address] [facility] [address] [place], [address], 02/14/2023 06:16:25 02/14/20 23 02/13/2023 CBC WITH DIFFE RENTI AL/PL ATELE T neutrophils 46 % notest b. Not Available [facility] [address] [place], [address], 02/14/2023 06:16:25 02/14/20 23 02/13/2023 CBC WITH DIFFE RENTI AL/PL ATELE T lymphs 42 % notest b. Not Available [facility] [address] [place], [address], 02/14/2023 06:16:25 02/14/2002/13/2023 CBC WITH DIFFE RENTI AL/PL ATELE T monocytes 7 % notest b. Not Available [facility] [address] [place], [address], 02/14/2023 06:16:25 02/14/20 23 02/13/2023 CBC WITH DIFFE RENTI AL/PL ATELE T eos 4 % notest b. Not Available [facility] [address] [place], [address], 02/14/2023 06:16:25 02/14/20 23 02/13/2023 CBC WITH DIFFE RENTI AL/PL ATELE T basos 1 % notest b. Not Available [facility] [address] [place], [address], 02/14/2023 06:16:25 02/14/20 23 02/13/2023 CBC WITH DIFFE RENTI AL/PL ATELE T neutrophils (absolute) 2.0 x10e3 /uL 1.4-7. [address] [facility] [address] [place], [address], 02/14/2023 06:16:25 02/14/20 23 02/13/2023 CBC WITH DIFFE RENTI AL/PL ATELE T lymphs (absolute) 1.8 x10e3 /uL 0.7-3. [address] [facility] [address] [place], [address], 02/14/2023 06:16:25 02/14/20 23 02/13/2023 CBC WITH DIFFE RENTI AL/PL ATELE T monocytes(ab solute) 0.3 x10e3 /uL 0.1-0. [address] [facility] [address] [place], [address], 02/14/2023 06:16:25 02/14/2002/13/2023 CBC WITH DIFFE RENTI AL/PL ATELE T eos (absolute) 0.2 x10e3 /uL 0.0-0. [address] [facility] [address] [place], [address], 02/14/2023 06:16:25 02/14/2002/13/2023 CBC WITH DIFFE RENTI AL/PL ATELE T baso (absolute) 0.0 x10e3 /uL 0.0-0. [address] [facility] [address] [place], [address], 02/14/2023 06:16:25 02/14/2002/13/2023 CBC WITH DIFFE RENTI AL/PL ATELE T immature granulocytes 0.2 % notest b. Not Available [facility] [address] [place], [address], 02/14/2023 06:16:25 02/14/20 23 02/13/2023 CBC WITH DIFFE RENTI AL/PL ATELE T immature grans (abs) 0.0 x10e3 /uL 0.0-0. [address] [facility] [address] [place], [address], 02/14/2023 06:16:25 02/14/20 23 02/13/2023 CBC WITH DIFFE RENTI AL/PL ATELE T NRBC 0 % 0-[address] [facility] [address] [place], [address], 02/14/2023 06:16:25 02/14/20 23 02/14/2023 ALBUM IN/CR EATIN INE RATIO ,URIN E creatinine, urine 92.1 mg/dL notest ab. Not Available [facility] ([facility]) [address] [place], [address], 02/14/2023 07:13:57 02/14/20 23 02/14/2023 ALBUM IN/CR EATIN INE RATIO ,URIN E albumin, urine 7.1 ug/mL notest ab. Not Available [facility] ([facility]) [address] [place], [address], 02/14/2023 07:13:57 02/14/20 23 02/14/2023 ALBUM IN/CR EATIN INE RATIO ,URIN E alb/creat ratio 8 mg/g_ creat 0-29 Yovana l: 0 - 29 Moder ately incre ased: 30 - 300 Sever aba incre ased: >300 Not Available [facility] ([facility]) [address] [place], [address], 02/14/2023 07:13:57 02/14/20 23 02/14/2023 HEMOG LOBIN A1C hemoglobin A1C 6.2 % 4.8-5. 6 above high normal Predi abete s: 5.7 - 6.4 Diabe abhinav: >6.4 Glyce corona contr ol for adult s with diabe abhinav: <7.0 Not Available [facility] ([facility]) [address] [place], [address], 02/14/2023 07:13:58 03/10/20 23 03/10/2023 MAGNE SIUM magnesium 1.8 mg/L 1.6-2. [address] [facility] [address] [place], [address], 03/11/2023 06:20:49 03/10/20 23 03/11/2023 PTH INTAC T+LUISITO CIUM, IONIZ ED calcium, ionized, serum 5.4 mg/dL 4.5-5. 6 Not Available [facility] ([facility]) [address] [facility], [place], [address], 03/11/2023 13:10:24 03/10/20 23 03/11/2023 PTH INTAC T+LUISITO CIUM, IONIZ ED PTH, intact 32 pg/mL 15-65 Not Available [facility] ([facility]) [address] [facility], [place], [address], 03/11/2023 13:10:24 03/10/20 23 03/11/2023 PHOSP HORUS phosphorus 3.4 mg/dL 3.0-4. 3 Not Available [facility] ([facility]) [address] [facility], [place], [address], 03/11/2023 13:10:25 03/10/20 23 03/11/2023 VITAM IN [...] Endoc rine Socie ty went on to [facility] er defin e vitam in D insuf ficie ncy as a level betwe en 21 and 29 ng/mL (2). 1. IOM (Inst itute of Medic ine). 2009. Dieta ry refer ence intak es for calci um and D. Jeffrey schmitt [place]: The Natio nal [facility] Press . 2. Reta maurice MF, Brooke ey [place], Bisnehemias off-F errar i SANTOS, et al. Evalu ation , treat ment, and preve ntion of vitam in D defic iency : an Endoc rine Socie ty clini luisito pract ice guide line. JCEM. 2010; 96(7) :1911 -30. Not Available [facility] ([facility]) [address] [place], [address], 03/11/2023 13:10:26 09/18/19 24 09/19/2023 LIPID PANEL cholesterol, total 158 mg/dL 100-19 9 Not Available [facility] ([facility]) [address] [place], [address], 09/19/2023 13:10:03 09/18/19 24 09/19/2023 LIPID PANEL triglyceride s 48 mg/dL 0-149 Not Available [facility]) [address] [place], [address], 09/19/2023 13:10:03 09/18/19 24 09/19/2023 LIPID PANEL HDL cholesterol 83 mg/dL >39 Not Available [facility] [address] [place], [address], 09/19/2023 13:10:03 09/18/19 24 09/19/2023 LIPID PANEL VLDL cholesterol luisito 10 mg/dL 5-40 Not Available [facility]) [address] [place], [address], 09/19/2023 13:10:03 09/18/19 24 09/19/2023 LIPID PANEL LDL chol calc ([facility]) 65 mg/dL 0-99 Not Available [facility] [address] [place], [address], 09/19/2023 13:10:03 09/18/19 24 09/19/2023 COMP. METAB OLIC PANEL (14) glucose 97 mg/dL 70-99 Not Available [facility] ([facility]) [address] [place], [address], 09/19/2023 13:10:04 06/21/20 24 09/19/2023 COMP. METAB OLIC PANEL (14) BUN 17 mg/dL 8-27 Not Available [facility] ([facility]) [address] [facility], [place], [address], 09/19/2023 13:10:04 09/18/19 24 09/19/2023 COMP. METAB OLIC PANEL (14) creatinine 0.74 mg/dL 0.57-1 .00 Not Available [facility] ([facility]) [address] [facility], [place], [address], 09/19/2023 13:10:04 09/18/19 24 09/19/2023 COMP. METAB OLIC PANEL (14) eGFR 90 mL/mi n/1.7 3 >59 Not Available [facility] ([facility]) [address] [facility], [place], [address], 09/19/2023 13:10:04 09/18/19 24 09/19/2023 COMP. METAB OLIC PANEL (14) BUN/creatini ne ratio 23 12-28 Not Available [facility] ([facility]) [address] [facility], [place], [address], 09/19/2023 13:10:04 09/18/19 24 09/19/2023 COMP. METAB OLIC PANEL (14) sodium 146 mmol/ L 134-14 4 above high normal Not Available [facility] ([facility]) [address] [place], [address], 09/19/2023 13:10:04 09/18/19 24 09/19/2023 COMP. METAB OLIC PANEL (14) potassium 4.0 mmol/ L 3.5-5. 2 Not Available [facility] ([facility]) [address] [facility], [place], [address], 09/19/2023 13:10:04 09/18/19 24 09/19/2023 COMP. METAB OLIC PANEL (14) chloride 109 mmol/ L 96-106 above high normal Not Available [facility] ([facility]) [address] [place] [place], [address], 09/19/2023 13:10:04 09/18/19 24 09/19/2023 COMP. METAB OLIC PANEL (14) carbon dioxide, total 23 mmol/ L 20-29 Not Available [facility] ([facility] [address] [place], [address], 09/19/2023 13:10:04 09/18/19 24 09/19/2023 COMP. METAB OLIC PANEL (14) calcium 10.0 mg/dL 8.7-10 .3 Not Available [facility] ([facility]) [address] [place], [address], 09/19/2023 13:10:04 09/18/19 24 09/19/2023 COMP. METAB OLIC PANEL (14) protein, total 7.3 g/dL 6.0-8. 5 Not Available [facility] ([facility]) [address] [place], [address], 09/19/2023 13:10:04 09/18/19 24 09/19/2023 COMP. METAB OLIC PANEL (14) albumin 4.6 g/dL 3.9-4. 9 Not Available [facility] ([facility]) [address] [facility] [place], [address], 09/19/2023 13:10:04 09/18/19 24 09/19/2023 COMP. METAB OLIC PANEL (14) globulin, total 2.7 g/dL 1.5-4. 5 Not Available [facility] ([facility]) [address] [place], [address], 09/19/2023 13:10:04 09/18/19 24 09/19/2023 COMP. METAB OLIC PANEL (14) bilirubin, total 0.8 mg/dL 0.0-1. 2 Not Available [facility] ([facility]) [address] [facility], [place], [address], 09/19/2023 13:10:04 09/18/19 24 09/19/2023 COMP. METAB OLIC PANEL (14) alkaline phosphatase 103 IU/L 44-121 Not Available [facility] ([facility]) [address] [facility], [place], [address], 09/19/2023 13:10:04 09/18/19 24 09/19/2023 COMP. METAB OLIC PANEL (14) AST (SGOT) 25 IU/L 0-40 Not Available [facility] ([facility]) [address] [facility], [place], [address], 09/19/2023 13:10:04 09/18/19 24 09/19/2023 COMP. METAB OLIC PANEL (14) ALT (SGPT) 19 IU/L 0-32 Not Available [facility] ([facility]) [address] [facility], [place], [address], 09/19/2023 13:10:04 09/18/19 24 09/19/2023 UA WITH CULTU RE REFLE X specific gravity 1.022 1.005- 1.030 Not Available [facility] ([facility]) [address] [facility], [place], [address], 09/19/2023 13:10:05 09/18/19 24 09/19/2023 UA WITH CULTU RE REFLE X pH 5.5 5.0-7. 5 Not Available [facility] ([facility]) [address] [facility], [place], [address], 09/19/2023 13:10:05 09/18/19 24 09/19/2023 UA WITH CULTU RE REFLE X urine-color YELLOW yellow Not Available [facility] ([facility]) [address] [facility], [place], [address], 09/19/2023 13:10:05 09/18/19 24 09/19/2023 UA WITH CULTU RE REFLE X appearance CLEAR clear Not Available [facility] ([facility]) [address] [facility], [place], [address], 09/19/2023 13:10:05 09/18/19 24 09/19/2023 UA WITH CULTU RE REFLE X WBC esterase NEGATI VE negati ve Not Available [facility] ([facility]) [address] [facility], [place], [address], 09/19/2023 13:10:05 09/18/19 24 09/19/2023 UA WITH CULTU RE REFLE X protein NEGATI VE negati ve/tra ce Not Available [facility] ([facility]) [address] [facility], [place], [address], 09/19/2023 13:10:05 09/18/19 24 09/19/2023 UA WITH CULTU RE REFLE X glucose NEGATI VE negati ve Not Available [facility] ([facility]) [address] [facility], [place], [address], 09/19/2023 13:10:05 09/18/19 24 09/19/2023 UA WITH CULTU RE REFLE X ketones NEGATI VE negati ve Not Available [facility] ([facility]) [address] [facility], [place], [address], 09/19/2023 13:10:05 09/18/19 24 09/19/2023 UA WITH CULTU RE REFLE X occult blood NEGATI VE negati ve Not Available [facility] ([facility]) [address] [place], [address], 09/19/2023 13:10:05 09/18/19 24 09/19/2023 UA WITH CULTU RE REFLE X bilirubin NEGATI VE negati ve Not Available [facility] ([facility]) [address] [place], [address], 09/19/2023 13:10:05 09/18/19 24 09/19/2023 UA WITH CULTU RE REFLE X urobilinogen ,semi-qn 0.2 mg/dL 0.2-1. 0 Not Available [facility] ([facility]) [address] [place], [address], 09/19/2023 13:10:05 09/18/19 24 09/19/2023 UA WITH CULTU RE REFLE X nitrite, urine NEGATI VE negati ve Not Available [facility] ([facility]) [address] [place], [address], 09/19/2023 13:10:05 09/18/19 24 09/19/2023 UA WITH CULTU RE REFLE X microscopic examination COMMEN T Micro scopi c not indic ated and not perfo rmed. Not Available [facility] ([facility]) [address] [facility], [place], [address], 09/19/2023 13:10:05 09/18/19 24 09/19/2023 UA WITH CULTU RE REFLE X urinalysis reflex COMMEN T This speci men will not refle x to a Urine Cultu re. Not Available [facility] ([facility]) [address] [place], [address], 09/19/2023 13:10:05 09/18/19 24 09/19/2023 HEMOG LOBIN A1C hemoglobin A1C 6.2 % 4.8-5. 6 above high normal Predi abete s: 5.7 - 6.4 Diabe abhinav: >6.4 Glyce corona contr ol for adult s with diabe abhinav: <7.0 Not Available [facility] ([facility]) [address] [place], [address], 09/19/2023 13:10:05 02/15/20 23 02/13/2023 DEXA No observ ation record ed. [facility] [address] [place], [address], 02/18/2023 15:34:43 05/07/19 24 colon oscop y outco mes repor ting* No observ ation record ed. [email or web address] Not Available 2023 09:16:13 01/15/20 24 01/15/2024 MAMMO , scree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
[2025-02-17 11:28] VITALS: BP 154/96
[2025-02-17] MEDS: BELLADONNA ALK/PHENOB ELIX 10 ML, MAG HYDROX/ALUMINUM HYD/SIMETH 30 ML, LIDOCAINE 2% VI... PO (11:51)
[2025-02-17 11:53] VITALS: BP 136/62; PULSE 98; RESP 16; O2SAT 99
[2025-02-17 12:07] LABS: Add Urine Microscopic? NO; Appearance Urine Clear (Clear); Glucose Urine UA Negative (Negative); Leukocyte Esterase Ur Negative LEU/UL (Negative); Nitrate Urine Negative (Negative); Specific Grav Ur 1.012 (1.001-1.035)
[2025-02-17 12:53] VITALS: BP 137/100; PULSE 87; RESP 18; O2SAT 100
== END 2025-02-17 14:40 | disposition home or self-care (01) ==
PROVIDERS: Emergency Provider Emergency Medicine
DX: H61.21 Impacted cerumen, right ear (principal); R73.9 Hyperglycemia, unspecified; R42 Dizziness and giddiness; R11.2 Nausea with vomiting, unspecified; I10 Essential (primary) hypertension
CPT/HCPCS: 36415; 69210; 80053; 81003; 83690; 85025; 96361; 96374; 96375; 96376; 99284; A9270; J2405; J2550; J7030